=== PATIENT | male | born 1960 | race Caucasian/White ===

== ENCOUNTER 2018-11-17 17:00 | Emergency (ER) | payer BC, SELFPAY ==
[2018-11-17 17:15] VITALS: BP 144/79; PULSE 60; RESP 20; TEMP 36.9; O2SAT 100; BMI 25.8
--- NOTE | 2018-11-17 17:46 | HMH.EDUTC ---
[facility] [place] Disposition Clinical Impression: Abscess Disposition: Home, Self-Care Condition on Discharge: Good Additional Instructions: keep dressing c/d/i monitor for signs of worsening follow up monday with pcp for culture results if any concerns return or be seen in ed take antibiotics as ordered contact precautions Prescriptions: Sulfamethoxazole/Trimethoprim [Bactrim DS tablet] 1 each PO BID 10 Days #20 tab cephALEXin [Keflex 500mg Cap] 500 mg PO BID 10 Days #20 cap Referrals: Moe Biswas MD [Primary Care Provider] - Time of Disposition: 17:52 Medical Decision Making - Deejay Inquiry Pt receiving controlled substance: No Vital Signs: 11/17/18 17:15 Temperature 98.5 F Temperature Source Oral Pulse Rate [Left Radial] 60 Respiratory Rate 20 Blood Pressure [Left Arm] 144/79 H Blood Pressure Mean [Left Arm] 100 Blood Pressure Source [Left Arm] Automatic Cuff Blood Pressure Position [Left Arm] Sitting 02 Sat by Pulse Oximetry 100 Oxygen Delivery Method Room Air [facility] [place] HPI - General Chief complaint: Urgent Treatment Center Stated complaint: spot on upper r Arm Time Seen by Provider: 11/17/18 17:47 Mode of Arrival: Ambulatory Source of Information: Patient Limitations: No Limitations Description of Symptoms (Recalled from Triage Doc. by RN): PT C/O ABCESS ON RT UPPER ARM HEENT Symptoms (Recalled from RN notes): No Resp Symptoms (Recalled from RN notes): No Skin Symptoms (Recalled from RN notes): Yes (ABCESS TO RT ARM) MS Symptoms (Recalled from RN notes): No Functional Status (Recalled from RN notes): N/A - History of Present Illness Provider Complaint: 58 yr old male presents for abcess on rt upper arm. Pt states it started as a pimple and he popped it and then it came back bigger. no hx of mrsa - Related Data Home Medications Medication Instructions Recorded Confirmed Baclofen 20 mg pe PO TID 07/30/18 07/31/18 diazePAM [diazePAM 5mg Tablet] 5 mg PO BID 07/30/18 07/31/18 Previous Rx's Medication Instructions Recorded Etodolac [Etodolac 200mg Cap] 200 mg PO Q6HP PRN #20 cap 07/30/18 Ciprofloxacin HCl [Ciprofloxacin 500 mg PO BID #20 tab 07/31/18 500mg Tab] Gabapentin [Gabapentin 100mg Cap] 100 mg PO TID #30 cap 07/31/18 Oxycodone HCl/Acetaminophen 1 tab PO Q6HP PRN #10 tab 07/31/18 [Percocet 5/325mg tablet] predniSONE [Prednisone 10mg Tab 10 mg PO DAILY #42 pack 07/31/18 Dose-Pack] Sulfamethoxazole/Trimethoprim 1 each PO BID 10 Days #20 tab 11/17/18 [Bactrim DS tablet] cephALEXin [Keflex 500mg Cap] 500 mg PO BID 10 Days #20 cap 11/17/18 Allergies Allergy/AdvReac Type Severity Reaction Status Date / Time CHOLESTEROL MEDS Allergy Unknown Uncoded 04/23/18 16:10 From BIAXIN Allergy Unknown Uncoded 04/23/18 16:10 - Worker's Comp Is this a Worker's Comp case?: No [facility] History - Hepatitis A Screen Drug use history?: No High risk sexual behaviors?: No History of sexually transmitted infection?: No Currently employed?: No Childcare worker?: No Do you have indoor plumbing?: Yes Do you have electricity?: Yes Attestation statement:: This patient has been screened for Hepatitis A risk factors. I have reviewed the patient's past medical history: Yes Medical History: Denies:: Diabetes Mellitus Type 1, Diabetes Mellitus Type 2 Laterality Cases: Bilateral: Tonsillectomy - Social History Smoking Status: Current every day smoker Tobacco Type: cigarettes # Packs/Day (cigarettes): 1 Alcohol Intake: never Substance Use Type: denies use Occupational Status: unemployed - Psychiatric History Expresses thoughts of harming self/others: None Suicide Plan Description: No Plan Family Hx:: Non-contributory ROS Obtained: Yes Systems reviewed as appropriate & no additional complaints - Constitutional Constitutional: Reports system reviewed and no additional complaints, except as docu, Denies fever(s) - Eyes Eyes: Reports system reviewed and no additional complaints, e
--- NOTE | 2018-11-17 17:49 | ED_ITS ---
[facility] [place] Clinical Impression: Abscess Disposition: Home, Self-Care Condition on Discharge: Good Additional Instructions: keep dressing c/d/i monitor for signs of worsening follow up monday with pcp for culture results if any concerns return or be seen in ed take antibiotics as ordered contact precautions Prescriptions: Sulfamethoxazole/Trimethoprim [Bactrim DS tablet] 1 each PO BID 10 Days #20 tab cephALEXin [Keflex 500mg Cap] 500 mg PO BID 10 Days #20 cap Referrals: Moe Biswas MD [Primary Care Provider] - Time of Disposition: 17:52 Medical Decision Making - Deejay Inquiry Pt receiving controlled substance: No Vital Signs: 11/17/18 17:15 Temperature 98.5 F Temperature Source Oral Pulse Rate [Left Radial] 60 Respiratory Rate 20 Blood Pressure [Left Arm] 144/79 H Blood Pressure Mean [Left Arm] 100 Blood Pressure Source [Left Arm] Automatic Cuff Blood Pressure Position [Left Arm] Sitting 02 Sat by Pulse Oximetry 100 Oxygen Delivery Method Room Air [facility] [place] HPI - General Chief complaint: Urgent Treatment Center Stated complaint: spot on upper r Arm Time Seen by Provider: 11/17/18 17:47 Mode of Arrival: Ambulatory Source of Information: Patient Limitations: No Limitations Description of Symptoms (Recalled from Triage Doc. by RN): PT C/O ABCESS ON RT UPPER ARM HEENT Symptoms (Recalled from RN notes): No Resp Symptoms (Recalled from RN notes): No Skin Symptoms (Recalled from RN notes): Yes (ABCESS TO RT ARM) MS Symptoms (Recalled from RN notes): No Functional Status (Recalled from RN notes): N/A - History of Present Illness Provider Complaint: 58 yr old male presents for abcess on rt upper arm. Pt states it started as a pimple and he popped it and then it came back bigger. no hx of mrsa - Related Data Home Medications Medication Instructions Recorded Confirmed Baclofen 20 mg pe PO TID 07/30/18 07/31/18 diazePAM [diazePAM 5mg Tablet] 5 mg PO BID 07/30/18 07/31/18 Previous Rx's Medication Instructions Recorded Etodolac [Etodolac 200mg Cap] 200 mg PO Q6HP PRN #20 cap 07/30/18 Ciprofloxacin HCl [Ciprofloxacin 500 mg PO BID #20 tab 07/31/18 500mg Tab] Gabapentin [Gabapentin 100mg Cap] 100 mg PO TID #30 cap 07/31/18 Oxycodone HCl/Acetaminophen 1 tab PO Q6HP PRN #10 tab 07/31/18 [Percocet 5/325mg tablet] predniSONE [Prednisone 10mg Tab 10 mg PO DAILY #42 pack 07/31/18 Dose-Pack] Sulfamethoxazole/Trimethoprim 1 each PO BID 10 Days #20 tab 11/17/18 [Bactrim DS tablet] cephALEXin [Keflex 500mg Cap] 500 mg PO BID 10 Days #20 cap 11/17/18 Allergies Allergy/AdvReac Type Severity Reaction Status Date / Time CHOLESTEROL MEDS Allergy Unknown Uncoded 04/23/18 16:10 From BIAXIN Allergy Unknown Uncoded 04/23/18 16:10 - Worker's Comp Is this a Worker's Comp case?: No [facility] History - Hepatitis A Screen Drug use history?: No High risk sexual behaviors?: No History of sexually transmitted infection?: No Currently employed?: No Childcare worker?: No Do you have indoor plumbing?: Yes Do you have electricity?: Yes Attestation statement:: This patient has been screened
[2018-11-17 17:57] VITALS: BP 144/79; PULSE 60; RESP 20; TEMP 36.9; O2SAT 100
== END 2018-11-17 17:58 | disposition home or self-care (01) ==
PROVIDERS: Emergency Provider Nurse Practitioner Family; PCP Family Medicine
DX: L02.413 Cutaneous abscess of right upper limb (principal); F17.210 Nicotine dependence, cigarettes, uncomplicated
CPT/HCPCS: 10060; 87070; 87077; 87186; 87205; 99201

== ENCOUNTER 2018-11-18 18:12 | Outpatient (CLI) | payer BC, SELFPAY | END 2018-11-18 18:24 | disposition home or self-care (01) | PROVIDERS: PCP Family Medicine; Visit Provider Nurse Practitioner Family | DX: L02.413 Cutaneous abscess of right upper limb (principal) ==

== ENCOUNTER 2020-06-21 18:18 | Emergency (ER) | payer BC, SELFPAY ==
[2020-06-21 18:25] VITALS: BP 153/89; PULSE 69; RESP 19; TEMP 36.6; O2SAT 99; BMI 25.1
--- NOTE | 2020-06-21 19:10 | HMH.EDUTC ---
[facility] [place] Disposition Clinical Impression: Exposure to COVID-19 virus Disposition: Home, Self-Care Condition on Discharge: Good Instructions: DI for COVID-19 (Suspected or Confirmed ), Coronavirus Disease 2019, Preventing the Spread of Coronavirus Discharge Instructions Additional Instructions: *Monitor Temp, Over the counter Motrin or Tylenol as directed/as needed Tylenol every 4 hours and Motrin every 6 hours (as long as your family doctor has told you that you can take it) for fever or pain. and straight to ER if unable to lower temp less than 101.0 after medication given Follow up IMMEDIATELY for new or worsening symptoms or no Noticeable improvement over the next 48-72 hours. 911 for difficulty breathing or swallowing You were tested for today for COVID19 your test result should be back in the next 24-48 hours, you may call to the [facility] to see if your test results are back in the next 48 hours [phone] [facility] hours are 9am-9pm You was given a handout with instructions for Self Quarantine and Self isolation for while you wait on test results and what to do if they are positive If you are positive the Health Dept will be contacting you also Referrals: Moe Biswas MD [Primary Care Provider] - As needed Forms: Work/School Release Time of Disposition: 19:15 Medical Decision Making - Deejay Inquiry Pt receiving controlled substance: No Deejay was queried for this patient: No Vital Signs: 06/21/20 18:25 Temperature 97.8 F Temperature Source Oral Pulse Rate [Right Brachial] 69 Respiratory Rate 19 Blood Pressure [Right Arm] 153/89 H Blood Pressure Mean [Right Arm] 110 Blood Pressure Source [Right Arm] Automatic Cuff Blood Pressure Position [Right Arm] Sitting 02 Sat by Pulse Oximetry 99 Oxygen Delivery Method Room Air Orders (Tests/Meds): ORDERS Category Date Time Status Covid-19 Nasal PCR ([facility]) Routine Lab 06/21/20 18:35 Received [facility] [place] HPI - General Stated complaint: covid test Time Seen by Provider: 06/21/20 19:10 Mode of Arrival: Ambulatory Source of Information: Patient Limitations: No Limitations Description of Symptoms (Recalled from Triage Doc. by RN): COVID TEST D/T EXPOSURE. DENIES SYMPTOMS HEENT Symptoms (Recalled from RN notes): No Resp Symptoms (Recalled from RN notes): No Skin Symptoms (Recalled from RN notes): No MS Symptoms (Recalled from RN notes): No Functional Status (Recalled from RN notes): WNL - History of Present Illness Provider Complaint: Patient states that he was recently around someone that tested positive for COVID States that he is not having any symptoms but wanted to get tested before returning to work - Related Data Home Medications Medication Instructions Recorded Confirmed Baclofen 20 mg pe PO TID 07/30/18 07/31/18 diazePAM [diazePAM 5mg Tablet] 5 mg PO BID 07/30/18 07/31/18 Previous Rx's Medication Instructions Recorded Etodolac [Etodolac 200mg Cap] 200 mg PO Q6HP PRN #20 cap 07/30/18 Ciprofloxacin HCl [Ciprofloxacin 500 mg PO BID #20 tab 07/31/18 500mg Tab] Gabapentin [Gabapentin 100mg Cap] 100 mg PO TID #30 cap 07/31/18 Oxycodone HCl/Acetaminophen 1 tab PO Q6HP PRN #10 tab 07/31/18 [Percocet 5/325mg tablet] predniSONE [Prednisone 10mg Tab 10 mg PO DAILY #42 pack 07/31/18 Dose-Pack] Sulfamethoxazole/Trimethoprim 1 each PO BID 10 Days #20 tab 11/17/18 [Bactrim DS tablet] cephALEXin [Keflex 500mg Cap] 500 mg PO BID 10 Days #20 cap 11/17/18 Allergies Allergy/AdvReac Type Severity Reaction Status Date / Time CHOLESTEROL MEDS Allergy Unknown Uncoded 04/23/18 16:10 From BIAXIN Allergy Unknown Uncoded 04/23/18 16:10 - Worker's Comp Is this a Worker's Comp case?: No [facility] History - Hepatitis A Screen Drug use history?: No High risk sexual behaviors?: No History of sexually transmitted infection?: No Currently employed?: No Childcare worker?: No Do you have indoor plumbing?: Yes Do you have electricity?: Yes Attestat
[2020-06-21 19:17] VITALS: BP 153/89; PULSE 69; RESP 19; TEMP 36.6; O2SAT 99
== END 2020-06-21 19:19 | disposition home or self-care (01) ==
PROVIDERS: Emergency Provider Nurse Practitioner; PCP Family Medicine
DX: Z20.822 Contact with and (suspected) exposure to COVID-19 (principal); F17.210 Nicotine dependence, cigarettes, uncomplicated
CPT/HCPCS: 99202; G0463; U0003

== ENCOUNTER 2020-07-22 13:39 | Emergency (ER) | payer BC, SELFPAY ==
[2020-07-22 13:50] VITALS: BP 179/102; PULSE 92; RESP 14; TEMP 36.6; O2SAT 98; BMI 25.8
--- NOTE | 2020-07-22 13:58 | HMH.EDUTC ---
[facility] [place] Clinical Impression: Exposure to COVID-19 virus Disposition: Home, Self-Care Condition on Discharge: Good Instructions: DI for COVID-19 (Suspected or Confirmed ), Coronavirus Disease 2019, Preventing the Spread of Coronavirus Discharge Instructions Additional Instructions: *Monitor Temp, Over the counter Motrin or Tylenol as directed/as needed Tylenol every 4 hours and Motrin every 6 hours (as long as your family doctor has told you that you can take it) for fever or pain. and straight to ER if unable to lower temp less than 101.0 after medication given Make sure to follow up with your Family Doctor for evaluation of your blood pressure it was elevated in the [facility] today Follow up IMMEDIATELY for new or worsening symptoms or no Noticeable improvement over the next 48-72 hours. 911 for difficulty breathing or swallowing You were tested for today for COVID19 your test result should be back in the next 24-48 hours, you may call to the [facility] to see if your test results are back in the next 48 hours [phone] [facility] hours are 9am-9pm You was given a handout with instructions for Self Quarantine and Self isolation for while you wait on test results and what to do if they are positive If you are positive the Health Dept will be contacting you also Referrals: Moe Biswas MD [Primary Care Provider] - As needed Time of Disposition: 14:05 Medical Decision Making - Deejay Inquiry Pt receiving controlled substance: No Deejay was queried for this patient: No Vital Signs: 07/22/20 13:50 Temperature 98 F Temperature Source Tympanic Pulse Rate [Right] 92 H Respiratory Rate 14 Blood Pressure [Right Arm] 179/102 H Blood Pressure Mean [Right Arm] 127 Blood Pressure Source [Right Arm] Automatic Cuff Blood Pressure Position [Right Arm] Sitting 02 Sat by Pulse Oximetry 98 Oxygen Delivery Method Room Air Orders (Tests/Meds): ORDERS Category Date Time Status Covid-19 Nasal PCR ([facility]) Routine Lab 07/22/20 13:50 Received [facility] [place] HPI - General Stated complaint: covid test Time Seen by Provider: 07/22/20 13:59 Mode of Arrival: Ambulatory Source of Information: Patient Limitations: No Limitations Description of Symptoms (Recalled from Triage Doc. by RN): PT WAS DIRECTLY EXPOSED TO COVID ON MONDAY. AYSMPTOMATIC. HEENT Symptoms (Recalled from RN notes): No Resp Symptoms (Recalled from RN notes): No Skin Symptoms (Recalled from RN notes): No MS Symptoms (Recalled from RN notes): No Functional Status (Recalled from RN notes): NA - History of Present Illness Provider Complaint: Patient states he was recently around someone that tested positive for COVID states that his work wanted him to get tested before he can return to work due to the exposure - Related Data Home Medications Medication Instructions Recorded Confirmed Baclofen 20 mg pe PO TID 07/30/18 07/31/18 diazePAM [diazePAM 5mg Tablet] 5 mg PO BID 07/30/18 07/31/18 Previous Rx's Medication Instructions Recorded Etodolac [Etodolac 200mg Cap] 200 mg PO Q6HP PRN #20 cap 07/30/18 Ciprofloxacin HCl [Ciprofloxacin 500 mg PO BID #20 tab 07/31/18 500mg Tab] Gabapentin [Gabapentin 100mg Cap] 100 mg PO TID #30 cap 07/31/18 Oxycodone HCl/Acetaminophen 1 tab PO Q6HP PRN #10 tab 07/31/18 [Percocet 5/325mg tablet] predniSONE [Prednisone 10mg Tab 10 mg PO DAILY #42 pack 07/31/18 Dose-Pack] Sulfamethoxazole/Trimethoprim 1 each PO BID 10 Days #20 tab 11/17/18 [Bactrim DS tablet] cephALEXin [Keflex 500mg Cap] 500 mg PO BID 10 Days #20 cap 11/17/18 Allergies Allergy/AdvReac Type Severity Reaction Status Date / Time CHOLESTEROL MEDS Allergy Unknown Uncoded 04/23/18 16:10 From BIAXIN Allergy Unknown Uncoded 04/23/18 16:10 - Worker's Comp Is this a Worker's Comp case?: No [facility] History - Hepatitis A Screen Drug use history?: No High risk sexual behaviors?: No History of sexually transmitted infection?: No Currently employed?: No
[2020-07-22 14:06] VITALS: BP 164/94
[2020-07-22 14:10] VITALS: BP 180/90; PULSE 85; RESP 16; TEMP 36.6
== END 2020-07-22 14:10 | disposition home or self-care (01) ==
PROVIDERS: Emergency Provider Nurse Practitioner; PCP Family Medicine
DX: Z20.822 Contact with and (suspected) exposure to COVID-19 (principal); F17.210 Nicotine dependence, cigarettes, uncomplicated
CPT/HCPCS: 99202; G0463; U0003

== ENCOUNTER 2020-10-21 12:43 | Emergency (ER) | payer BC, SELFPAY ==
[2020-10-21 12:53] VITALS: BP 157/90; PULSE 76; RESP 20; TEMP 36.9; O2SAT 92; BMI 26.1
--- NOTE | 2020-10-21 13:16 | HMH.EDUTC ---
[facility] [place] Disposition Clinical Impression: Exposure to COVID-19 virus Disposition: Home, Self-Care Condition on Discharge: Good Instructions: Preventing the Spread of Coronavirus Discharge Instructions Additional Instructions: Drink plenty of fluids. Take tylenol for pain or fever. Return if you begin to have difficulty breathing. Follow up with your regular doctor. GO TO THE ER FOR ANY WORSENING SYMPTOMS Referrals: Moe Biswas MD [Primary Care Provider] - Time of Disposition: 13:18 Medical Decision Making - Medical Records Medical records reviewed: No: I reviewed the patient's medical records. - Deejay Inquiry Pt receiving controlled substance: No Vital Signs: 10/21/20 12:53 10/21/20 13:19 Temperature 98.5 F 98 F Temperature Source Oral Pulse Rate 78 Pulse Rate [Right Radial] 76 Respiratory Rate 20 16 Blood Pressure 147/91 H Blood Pressure [Right Arm] 157/90 H Blood Pressure Mean [Right Arm] 112 02 Sat by Pulse Oximetry 92 L Oxygen Delivery Method Room Air [facility] [place] HPI - General Stated complaint: Covid test Time Seen by Provider: 10/21/20 13:16 Mode of Arrival: Ambulatory Source of Information: Patient Limitations: No Limitations Description of Symptoms (Recalled from Triage Doc. by RN): covid exposure, needs tested HEENT Symptoms (Recalled from RN notes): No Resp Symptoms (Recalled from RN notes): No Skin Symptoms (Recalled from RN notes): No MS Symptoms (Recalled from RN notes): No Functional Status (Recalled from RN notes): na - History of Present Illness Provider Complaint: He states that he was exposd to covid-19 4 days ago. He denies any symptoms so far. - Related Data Home Medications Medication Instructions Recorded Confirmed Baclofen 20 mg pe PO TID 07/30/18 07/31/18 diazePAM [diazePAM 5mg Tablet] 5 mg PO BID 07/30/18 07/31/18 Previous Rx's Medication Instructions Recorded Etodolac [Etodolac 200mg Cap] 200 mg PO Q6HP PRN #20 cap 07/30/18 Ciprofloxacin HCl [Ciprofloxacin 500 mg PO BID #20 tab 07/31/18 500mg Tab] Gabapentin [Gabapentin 100mg Cap] 100 mg PO TID #30 cap 07/31/18 Oxycodone HCl/Acetaminophen 1 tab PO Q6HP PRN #10 tab 07/31/18 [Percocet 5/325mg tablet] predniSONE [Prednisone 10mg Tab 10 mg PO DAILY #42 pack 07/31/18 Dose-Pack] Sulfamethoxazole/Trimethoprim 1 each PO BID 10 Days #20 tab 11/17/18 [Bactrim DS tablet] cephALEXin [Keflex 500mg Cap] 500 mg PO BID 10 Days #20 cap 11/17/18 Allergies Allergy/AdvReac Type Severity Reaction Status Date / Time CHOLESTEROL MEDS Allergy Unknown Uncoded 04/23/18 16:10 From BIAXIN Allergy Unknown Uncoded 04/23/18 16:10 - Worker's Comp Is this a Worker's Comp case?: No [facility] History - Hepatitis A Screen Drug use history?: No High risk sexual behaviors?: No History of sexually transmitted infection?: No Currently employed?: No Childcare worker?: No Do you have indoor plumbing?: Yes Do you have electricity?: Yes Attestation statement:: This patient has been screened for Hepatitis A risk factors. I have reviewed the patient's past medical history: Yes Medical History: Denies:: Diabetes Mellitus Type 1, Diabetes Mellitus Type 2 Laterality Cases: Bilateral: Tonsillectomy - Social History Smoking Status: Current every day smoker Tobacco Type: cigarettes # Packs/Day (cigarettes): 1 Alcohol Intake: current Alcohol Intake Frequency:: 0-2 drinks per day Substance Use Type: denies use Occupational Status: employed Family Hx:: Non-contributory ROS Obtained: Yes All systems reviewed & no additional complaints - Constitutional Constitutional: Reports system reviewed and no additional complaints, except as docu - Eyes Eyes: Reports system reviewed and no additional complaints, except as docu - ENT Ears, Nose, Mouth, and Throat: Reports system reviewed and no additional complaints, except as docu - Cardiovascular Cardiovascular: Reports system reviewed and no additiona
[2020-10-21 13:19] VITALS: BP 147/91; PULSE 78; RESP 16; TEMP 36.6
--- NOTE | 2020-10-22 20:55 | PC.NURSE ---
Pt notified of his negative Covid result. 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
== END 2020-10-21 13:21 | disposition home or self-care (01) ==
PROVIDERS: Emergency Provider Nurse Practitioner Family; PCP Family Medicine
DX: Z20.822 Contact with and (suspected) exposure to COVID-19 (principal); F17.210 Nicotine dependence, cigarettes, uncomplicated
CPT/HCPCS: 99202; G0463; U0003

== ENCOUNTER → 2020-11-06 16:08 | Outpatient (CLI) | payer BC, SELFPAY ==
--- NOTE | 2020-11-06 | XR_ITS ---
PROCEDURE INFORMATION: Exam: XR Right Ribs with PA Chest Exam date and time: 11/06/2020 12:00 AM Age: 60 years old Clinical indication: Chest wall pain; Right; Additional info: Rib pain on anterior right side directly under RT clavicle TECHNIQUE: Imaging protocol: XR Right ribs with PA chest. Views: 3 views COMPARISON: CR XR CHEST 2V 06/05/2019 4:06 PM FINDINGS: Lungs: Unremarkable. No consolidation. Pleural spaces: Unremarkable. No pleural effusion. No pneumothorax. Heart/Mediastinum: Unremarkable. No cardiomegaly. Bones/joints: Scoliosis of the lumbar spine Contour abnormality in the anterior right 2nd rib may represent nondisplaced fracture IMPRESSION: Contour abnormality in the anterior right 2nd rib may represent nondisplaced fracture
--- NOTE | 2020-11-06 | XR_ITS ---
PROCEDURE INFORMATION: Exam: XR Left Knee Exam date and time: 11/06/2020 12:00 AM Age: 60 years old Clinical indication: Pain; Knee; Left; Additional info: Left medial knee pain TECHNIQUE: Imaging protocol: XR Left knee. Views: 3 views. COMPARISON: No relevant prior studies available. FINDINGS: Bones/joints: Mild the the all joint space narrowing in the medial compartment and patellofemoral compartment consistent with mild degenerative changes. There is no evidence of acute fracture.There is no evidence of malalignment or dislocation. Soft tissues: Normal. IMPRESSION: 1. Mild the the all joint space narrowing in the medial compartment and patellofemoral compartment consistent with mild degenerative changes. 2. There is no evidence of acute fracture.There is no evidence of malalignment or dislocation.
== END ==
LOC: RAD 16:09
PROVIDERS: PCP Family Medicine; Visit Provider Family Medicine
DX: R07.81 Pleurodynia (principal); M25.561 Pain in right knee; M25.562 Pain in left knee
CPT/HCPCS: 71101; 73562

== ENCOUNTER → 2020-11-13 15:05 | Outpatient (CLI) | payer BC, SELFPAY ==
--- NOTE | 2020-11-13 15:08 | XR_ITS ---
PROCEDURE: XR CERVICAL SPINE 5V CLINICAL INDICATION: RIGHT CERVICAL RADICULOPATHY COMPARISON: No exams were available for comparison FINDINGS: There are moderate to severe degenerative changes of C4-5 with moderate degenerative change of C5-6. Odontoid and lateral masses of C1 are normal. No prevertebral soft tissue swelling. Moderate to severe right neural foraminal narrowing at C4-5 and C5-6 with moderate left C4-5 and mild to moderate left C5-6 neural foraminal narrowing. Consider MRI cervical spine for further assessment. 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 Consider MRI cervical spine for further assessment. No acute fracture or subluxation. Dictated by: Yobany Obregon MD 11/13/2020 16:01 Yobany Obregon MD in [place] 11/13/2020 16:01
== END ==
PROVIDERS: PCP Family Medicine; Visit Provider Family Medicine
DX: M54.12 Radiculopathy, cervical region (principal)
CPT/HCPCS: 72050

== ENCOUNTER → 2020-11-24 17:00 | Outpatient (CLI) | payer BC, SELFPAY | PROVIDERS: PCP Family Medicine; Referring Provider Family Medicine; Visit Provider Family Medicine | DX: Z20.828 Contact with and (suspected) exposure to other viral communicable diseases (principal) | CPT/HCPCS: U0003 ==

== ENCOUNTER → 2021-09-15 13:14 | Outpatient (CLI) | payer BC, SELFPAY ==
--- NOTE | 2021-09-15 13:18 | US_ITS ---
FINAL REPORT CLINICAL HISTORY: LT NODULE OF GROIN FINDINGS: ULTRASOUND SOFT TISSUES OF THE LEFT GROIN Sonographic images of the soft tissues of the left groin were obtained. There is a 3.4 cm left inguinal lymph node which has the appearance most consistent with a reactive node. There are several other probable reactive nodes in the left inguinal region. IMPRESSION: Reactive lymph nodes in the left inguinal region. Reviewed, Interpreted and Dictated by Alvaro Garcia III, MD Transcribed by Beatriz He Authenticated by Alvaro Garcia III, MD on 09/15/2021 04:54:24 PM [facility]
== END ==
LOC: RAD 13:15
PROVIDERS: PCP Family Medicine; Visit Provider Nurse Practitioner Family
DX: R19.09 Other intra-abdominal and pelvic swelling, mass and lump (principal)
CPT/HCPCS: 76882

== ENCOUNTER 2022-01-06 09:28 | Emergency (ER) | payer BC, SELFPAY ==
[2022-01-06] VITALS (11 sets, daily range): BP systolic 113–171; BP diastolic 72–106; PULSE 60–81; RESP 16–17; TEMP 36.6; O2SAT 97–99; BMI 25.9
--- NOTE | 2022-01-06 09:31 | ECG_ITS ---
APPROVED REPORT Exam: Resting ECG HR:84 bpm ECG Measurements Heart Rate 84 AXES NV 128 P 70 QRSd 76 QRS 77 QT 353 T 74 QTc 393 Conclusion SINUS RHYTHM WITH SINUS ARRHYTHMIA NORMAL ECG UNCONFIRMED REPORT Electronically signed by : Moe Nunes MD 01/07/2022 21:41:41
--- NOTE | 2022-01-06 09:37 | XR_ITS ---
FINAL REPORT CLINICAL HISTORY: chest pain COMPARISON: 11/06/2020 FINDINGS: Two views of the chest were obtained. The heart size and pulmonary vascularity are within normal limits. The mediastinum is normal. No acute pulmonary abnormality is identified. There is no pneumothorax. The bony thorax is intact. IMPRESSION: No active cardiopulmonary disease. Reviewed, Interpreted and Dictated by Alvaro Garcia III, MD Transcribed by Bruna Guo Authenticated and [facility]
--- NOTE | 2022-01-06 09:41 | PC.NURSE ---
pt to radiology for chest xr via wheelchair with RAD techs x 2
--- NOTE | 2022-01-06 09:44 | PC.NURSE ---
pt back from radiology via wheelchair with fisheries technical officer; hooked back to monitor
[2022-01-06 09:51] LABS: Basophils # 0.1 K/mm3 (0-0.2); Eosinophils # 0.2 K/mm3 (0.0-0.4); Eosinophils % 2.2 % (0.1-12.0); Hemoglobin 15.4 g/dL (14.1-18.0); Lymphocytes # 2.5 K/mm3 (0.7-4.5); Lymphocytes % 24.5 % (10-50); Mean Corpuscular HGB Conc 31.5 g/dL (31.8-35.4); Mean Corpuscular Hemoglobin 30.2 pg (27.0-31.2); Mean Corpuscular Volume 95.9 fl (80-94); Mean Platelet Volume 7.8 fl (7.4-10.4); Monocytes # 0.6 K/mm3 (0.1-1.0); Neutrophils # 6.7 K/mm3 (1.8-7.8); Neutrophils % 66.3 % (37.0-80.0); Platelet Count 207 K/mm3 (142-424); Red Blood Count 5.11 M/mm3 (4.60-6.20); Red Cell Distribution Width 14.4 % (11.5-17.5); White Blood Count 10.2 K/mm3 (4.8-10.8)
[2022-01-06 09:54] LABS: Chloride 107 mmol/L (98-107); Sodium 143 mmol/L (136-145)
[2022-01-06 09:55] LABS: Potassium 4.1 mmoL/L (3.5-5.1)
[2022-01-06 09:58] LABS: Anion Gap 13.1 mEq/L (5-15); Blood Urea Nitrogen 16 mg/dl (9-20); Calcium 10.2 mg/dl (8.4-10.2); Carbon Dioxide 27 mmol/L (22.0-30.0); Creatinine Clearance Estimated 97 mL/min (50-200); Estimated Glomerular Filt Rate 86 ml/min (>60); GFR (African American) 105 ML/MIN (>60); Glucose 136 mg/dl (74-100)
--- NOTE | 2022-01-06 10:01 | PC.NURSE ---
pt took 2 asa at home
--- NOTE | 2022-01-06 10:04 | HMH.EDGENADL ---
ED Disposition Clinical Impression: Chest pain Qualifiers: Chest pain type: unspecified Qualified Code(s): R07.9 - Chest pain, unspecified Disposition: Home, Self-Care Condition on Discharge: Good Instructions: DI for Chest Pain Additional Instructions: Losartan as prescribed. See Dr. Giordano on Monday as arranged. Additional instructions for CHEST PAIN: Return immediately if worsening chest pain, vomiting, shortness of breath, fever, coughing of blood. Prescriptions: Valsartan [Diovan] 80 mg PO DAILY #30 tab Transmission Status: Pending to [facility] Referrals: Provider,MD Katiuska [Referring] - Jim Giordano MD [Staff Physician] - - Critical Care Critical Care Time: No Attestation: On 01/06/22, the high probability of a clinically significant, sudden or life threatening deterioration of the following system(s) required my full and direct attention, intervention and personal management. The time I documented below is in addition to time spent performing reported procedures but includes the following listed in this critical care notation. Medical Decision Making - Deejay Inquiry Pt receiving controlled substance: No Vital Signs: 01/06/22 09:33 01/06/22 10:00 01/06/22 10:25 Temperature 98 F Temperature Source Oral Pulse Rate 75 67 Pulse Rate [Radial] 81 Respiratory Rate 16 Blood Pressure 158/95 H 171/85 H Blood Pressure [Right Arm] 164/95 H Blood Pressure Mean 119 113 Blood Pressure Mean [Right Arm] 118 Blood Pressure Position Sitting Blood Pressure Position [Right Arm] Sitting 02 Sat by Pulse Oximetry 98 98 99 Oxygen Delivery Method Nasal Cannula 01/06/22 10:30 01/06/22 10:35 01/06/22 10:56 Temperature Temperature Source Pulse Rate 72 73 72 Pulse Rate [Radial] Respiratory Rate Blood Pressure 136/94 H 144/91 H 161/106 H Blood Pressure [Right Arm] Blood Pressure Mean 108 124 Blood Pressure Mean [Right Arm] Blood Pressure Position Blood Pressure Position [Right Arm] 02 Sat by Pulse Oximetry 97 98 Oxygen Delivery Method 01/06/22 11:00 01/06/22 11:34 01/06/22 11:35 Temperature Temperature Source Pulse Rate 70 68 71 Pulse Rate [Radial] Respiratory Rate Blood Pressure 142/101 H 115/72 113/74 Blood Pressure [Right Arm] Blood Pressure Mean 114 88 87 Blood Pressure Mean [Right Arm] Blood Pressure Position Blood Pressure Position [Right Arm] 02 Sat by Pulse Oximetry 98 98 99 Oxygen Delivery Method 01/06/22 12:00 Temperature Temperature Source Pulse Rate 64 Pulse Rate [Radial] Respiratory Rate Blood Pressure 118/72 Blood Pressure [Right Arm] Blood Pressure Mean 84 Blood Pressure Mean [Right Arm] Blood Pressure Position Blood Pressure Position [Right Arm] 02 Sat by Pulse Oximetry 98 Oxygen Delivery Method - Lab Data Lab Results 01/06/22 09:38: WBC 10.2, RBC 5.11, Hgb 15.4, Hct 49.0, MCV 95.9 H, MCH 30.2, MCHC 31.5 L, RDW 14.4, Plt Count 207, MPV 7.8, Neut % (Auto) 66.3, Lymph % (Auto) 24.5, [place] % (Auto) 6.0, Eos % (Auto) 2.2, Baso % (Auto) 1.0, Neut # (Auto) 6.7, Lymph # (Auto) 2.5, [place] # (Auto) 0.6, Eos # (Auto) 0.2, Baso # (Auto) 0.1 01/06/22 09:38: Sodium 143, Potassium 4.1, Chloride 107, Carbon Dioxide 27, Anion Gap 13.1, BUN 16, Creatinine 0.90, Estimated Creat Clear 97, Estimated GFR 86, Est GFR ( Amer) 105, Glucose 136 H, Calcium 10.2, Troponin I < 0.01 01/06/22 12:05: Troponin I < 0.01 Result diagrams: 01/06/22 09:38 01/06/22 09:38 Orders (Tests/Meds): ED MEDICATIONS Generic Name Dose Route Start Last Admin Trade Name Freq PRN Reason Stop Dose Admin Nitroglycerin 0.4 mg 01/06/22 10:17 01/06/22 10:35 Nitroglycerin 0.4mg Sl Tablet SL 02/05/22 10:16 0.4 mg Q5MINP PRN Administration Chest Pain Sodium Chloride 10 ml 01/06/22 09:43 Sodium Chloride 0.9% 10ml Flush Syringe IV 02/05/22 09:42 NEEDED PRN Maintain
--- NOTE | 2022-01-06 10:12 | PC.NURSE ---
MINGO HANCOCK at for patient eval
[2022-01-06 10:18] LABS: Troponin I < 0.01 ng/ml (0.00-0.034)
--- NOTE | 2022-01-06 10:19 | PC.NURSE ---
pt ambulated up to br
--- NOTE | 2022-01-06 10:22 | PC.NURSE ---
called office for cardiology consult
--- NOTE | 2022-01-06 10:38 | PC.NURSE ---
Cardiology at speaking with patient
--- NOTE | 2022-01-06 10:54 | HMH.CNCARD ---
History of Present Illness Consult date: 01/06/22 Requesting physician: Roger Dumont Consult reason: chest pain Chief complaint: chest pain Additional Medical History:: Significant past medical hx 1 ppd smoker hx of afib and vtach s/p 2 ablations in 2013 normal cors 2012 History of present illness: 61 year old male with above past medical hx presented to er with complaint of left sided, sharp, chest pain, radiating down left arm to elbow and into left shoulder blade that started at 0800. 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 Patient states he went to the nurse an bp was elevated- systolic was in the 150s. Symptoms did improve but had another episode of sharp chest pain in ED. Of note bp up to 171/85 in ED. Currently rating pain 4/10. Denies associated soa. denies hx of swelling/pain in legs. Patient reports a few episodes of chest pain previously over the years but usually brief in nature. First trop is negative, ekg is negative for ischemic changes, chest x-ray negative for acute changes. [facility] History Medical History: Denies:: Diabetes Mellitus Type 1, Diabetes Mellitus Type 2 *Have you ever received a pneumonia vaccine?: No *Have you received a flu vaccine this season?: No Laterality Cases: Bilateral: Tonsillectomy - *Social History Smoking Status: Current every day smoker Tobacco Type: cigarettes # Packs/Day (cigarettes): 1 Alcohol Intake: current Alcohol Intake Frequency:: 0-2 drinks per day Substance Use Type: denies use *Occupational Status:: employed *Travel in the last 8 weeks: Inside the [facility] Family Hx:: Non-contributory Meds Home Medications Medication Instructions Recorded Confirmed Type Baclofen 20 mg pe PO TID 07/30/18 07/31/18 History Etodolac [Etodolac 200mg Cap] 200 mg PO Q6HP PRN #20 cap 07/30/18 07/31/18 Rx diazePAM [diazePAM 5mg Tablet] 5 mg PO BID 07/30/18 07/31/18 History Ciprofloxacin HCl [Ciprofloxacin 500 mg PO BID #20 tab 07/31/18 Rx 500mg Tab] Gabapentin [Gabapentin 100mg Cap] 100 mg PO TID #30 cap 07/31/18 Rx Oxycodone HCl/Acetaminophen 1 tab PO Q6HP PRN #10 tab 07/31/18 Rx [Percocet 5/325mg tablet] predniSONE [Prednisone 10mg Tab 10 mg PO DAILY #42 pack 07/31/18 Rx Dose-Pack] Sulfamethoxazole/Trimethoprim 1 each PO BID 10 Days #20 tab 11/17/18 Rx [Bactrim DS tablet] cephALEXin [Keflex 500mg Cap] 500 mg PO BID 10 Days #20 cap 11/17/18 Rx Valsartan [Diovan] 80 mg PO DAILY #30 tab 01/06/22 Rx Allergies Allergy/AdvReac Type Severity Reaction Status Date / Time CHOLESTEROL MEDS Allergy Unknown Uncoded 04/23/18 16:10 From BIAXIN Allergy Unknown Uncoded 04/23/18 16:10 Exam Vital signs and Labs for Last 24 Hours: Temp Pulse Resp BP Pulse Ox 98 F 73 16 144/91 H 98 01/06/22 09:33 01/06/22 10:35 01/06/22 09:33 01/06/22 10:35 01/06/22 09:33 Laboratory Results - last 24 hr 01/06/22 09:38: WBC 10.2, RBC 5.11, Hgb 15.4, Hct 49.0, MCV 95.9 H, MCH 30.2, MCHC 31.5 L, RDW 14.4, Plt Count 207, MPV 7.8, Neut % (Auto) 66.3, Lymph % (Auto) 24.5, [place] % (Auto) 6.0, Eos % (Auto) 2.2, Baso % (Auto) 1.0, Neut # (Auto) 6.7, Lymph # (Auto) 2.5, [place] # (Auto) 0.6, Eos # (Auto) 0.2, Baso # (Auto) 0.1 01/06/22 09:38: Sodium 143, Potassium 4.1, Chloride 107, Carbon Dioxide 27, Anion Gap 13.1, BUN 16, Creatinine 0.90, Estimated Creat Clear 97, Estimated GFR 86, Est GFR ( Amer) 105, Glucose 136 H, Calcium 10.2, Troponin I < 0.01 I & O for Last 24 hours: Intake & Output 01/03/22 01/04/22 01/05/22 01/06/22 23:59 23:59 23:59 23:59 Weight 171 lb - Constitutional no acute distress - *Routine Respiratory Exam Present: CTA bilaterally - *Routine Extremities Exam Absent: cyanosis, clubbing, edema Review of Systems - *Cardiovascular Reports chest pain, Denies shortness of breath Assessment and Plan (1) HTN (hypertension) Status: Acute Categ
--- NOTE | 2022-01-06 11:55 | PC.NURSE ---
holding bp medication per MD request. pt bp at baseline currently
--- NOTE | 2022-01-06 12:22 | PC.NURSE ---
2ND TROP SENT TO LAB
[2022-01-06 12:44] LABS: Troponin I < 0.01 ng/ml (0.00-0.034)
--- NOTE | 2022-01-06 12:55 | PC.NURSE ---
cardiology to the ed and gave verbal d/c orders to ed physician
== END 2022-01-06 13:18 | disposition home or self-care (01) ==
PROVIDERS: Emergency Provider Emergency Medicine; PCP Family Medicine
DX: R07.9 Chest pain, unspecified (principal); Z79.899 Other long term (current) drug therapy; Z88.8 Allergy status to other drugs, medicaments and biological substances; Z72.0 Tobacco use
CPT/HCPCS: 71046; 80048; 84484; 85025; 93005; 99284

== ENCOUNTER 2022-10-25 17:00 | Outpatient (RCR) | payer BC, SELFPAY | END 2022-10-25 17:05 | disposition home or self-care (01) | LOC: PT 17:00 | PROVIDERS: PCP Family Medicine; Visit Provider Internal Medicine | DX: G89.29 Other chronic pain (principal); M54.30 Sciatica, unspecified side; M54.9 Dorsalgia, unspecified; M47.892 Other spondylosis, cervical region | CPT/HCPCS: 97012; 97110; 97163 ==

== ENCOUNTER → 2023-05-01 23:52 | Outpatient (CLI) | payer BC, SELFPAY ==
[2023-05-01 19:00] LABS: Basophils # 0.1 K/mm3 (0-0.2); Basophils % 0.6 % (0.1-2.0); Eosinophils # 0.2 K/mm3 (0.0-0.4); Eosinophils % 1.7 % (0.1-12.0); Hematocrit 47.2 % (42.0-52.0); Hemoglobin 15.9 g/dL (14.1-18.0); Lymphocytes # 2.9 K/mm3 (0.7-4.5); Lymphocytes % 21.2 % (10-50); Mean Corpuscular HGB Conc 33.6 g/dL (31.8-35.4); Mean Corpuscular Hemoglobin 31.5 pg (27.0-31.2); Mean Corpuscular Volume 93.7 fl (80-94); Mean Platelet Volume 9.1 fl (7.4-10.4); Monocytes # 0.7 K/mm3 (0.1-1.0); Monocytes % 5.2 % (1.7-9.3); Neutrophils # 9.9 K/mm3 (1.8-7.8); Neutrophils % 71.3 % (37.0-80.0); Platelet Count 230 K/mm3 (142-424); Red Blood Count 5.04 M/mm3 (4.60-6.20); Red Cell Distribution Width 14.1 % (11.5-17.5); White Blood Count 13.9 K/mm3 (4.8-10.8)
[2023-05-01 19:22] LABS: Hemoglobin A1C 5.6 % (4.0-6.0)
[2023-05-01 19:38] LABS: Alanine Aminotransferase 35 U/L (12-78); Albumin Level 4.8 g/dl (3.5-5.0); Albumin/Globulin Ratio 1.7 (1.1-1.8); Aspartate Amino Transferase 39 U/L (17-59); Blood Urea Nitrogen 17 mg/dl (9-20); Calcium 9.6 mg/dl (8.4-10.2); Carbon Dioxide 24 mmol/L (22.0-30.0); Chloride 106 mmol/L (98-107); Chol/HDL Ratio 7.3 (1-3.5); Cholesterol 313 mg/dl (140-200); Estimated Glomerular Filt Rate 86 ml/min (>60); GFR (African American) 104 ML/MIN (>60); Globulin 2.9 g/dL (1.3-3.2); Glucose 95 mg/dl (74-100); HDL Cholesterol 43 mg/dl (40-60); Total Protein,Serum 7.7 g/dl (6.3-8.2); Triglycerides 327 mg/dl (30-150); VLDL Cholesterol 65 mg/dL (0-40)
[2023-05-01 19:40] LABS: Alkaline Phosphatase 120 U/L (38-126); Anion Gap 14.7 mEq/L (5-15); Bilirubin,Total 0.4 mg/dl (0.2-1.3); Potassium 3.7 mmoL/L (3.5-5.1); Sodium 141 mmol/L (136-145)
[2023-05-01 19:50] LABS: Direct LDL Cholesterol 200.73 mg/dL (100-129)
[2023-05-01 19:54] LABS: Creatinine,Urine Random 255 mg/dL (Not Estab.)
[2023-05-01 20:01] LABS: Microalbumin/Creatinine Ratio 8.7
[2023-05-01 20:10] LABS: Prostate Specific Ag Screen 4.3 ng/ml (0.0-4.0)
== END ==
LOC: LAB.DROPOF 23:52
PROVIDERS: PCP Internal Medicine; Visit Provider Internal Medicine
DX: Z12.5 Encounter for screening for malignant neoplasm of prostate; Z79.899 Other long term (current) drug therapy; I10 Essential (primary) hypertension
CPT/HCPCS: 80053; 80061; 82043; 82570; 83036; 85025; G0103

== ENCOUNTER 2023-06-26 14:50 | Outpatient (CLI) | payer BC, SELFPAY ==
[2023-06-27 08:32] LABS: PSA, Free 0.82 ng/mL; Prostate Specific Ag 4.5 ng/mL (0.0-4.0)
== END 2023-06-26 23:59 ==
LOC: LAB 14:51
PROVIDERS: PCP Internal Medicine; Visit Provider Urology
DX: R97.20 Elevated prostate specific antigen [PSA] (principal)
CPT/HCPCS: 36415; 84153; 84154

== ENCOUNTER 2023-07-17 11:09 | Emergency (ER) | payer BC, SELFPAY ==
[2023-07-17 11:35] VITALS: BP 133/70; PULSE 97; RESP 20; TEMP 37.2; O2SAT 97; BMI 26.1
--- NOTE | 2023-07-17 11:41 | ED_ITS ---
Discharge Plan Disposition Patient Disposition: Home, Self-Care Condition: Good Prescriptions Prescriptions: New benzonatate [benzonatate] 100 mg capsule 100 mg PO TIDP PRN (Reason: Cough) Qty: 30 0RF oseltamivir [Tamiflu] 75 mg capsule 75 mg PO BID Qty: 10 0RF methylprednisolone 4 mg Tablets,Dose Pack 4 mg PO DIRECTED 6 Days Qty: 21 0RF Rx Instructions: Take 1 pack as directed for 6 days ondansetron 4 mg Tablet,Disintegrating 4 mg PO Q8H PRN (Reason: Nausea) Qty: 12 0RF No Action tizanidine 2 mg tablet 2 mg PO Q6H PRN (Reason: muscle spasticity) Qty: 120 1RF Rx Instructions: 1-2 q 6 hours PRN. tramadol 50 mg tablet 50 mg PO Q6H PRN (Reason: pain) Qty: 180 1RF Rx Instructions: 1-2 tablets q 6 hours PRN pain meloxicam 15 mg tablet 15 mg PO DAILY 30 Days Qty: 30 2RF lisinopril 5 mg tablet 5 mg PO DAILY 30 Days Qty: 30 2RF fenofibrate 50 mg capsule 50 mg PO DAILY 30 Days Qty: 30 2RF omega-3 fatty acids 1,000 mg capsule 1,000 mg PO BID 30 Days Qty: 60 2RF oxybutynin chloride 10 mg tablet extended release 24hr 10 mg PO DAILY Qty: 90 3RF tamsulosin [Flomax] 0.4 mg capsule 0.4 mg PO DAILY Qty: 30 3RF Referrals Follow up/Referrals: Paresh Delcid DO [Primary Care Provider] - See instructions Activity Restrictions/Add. Instructions Additional Instructions/Restrictions: Drink plenty of fluids. Take tylenol or ibuprofen for pain or fever. Take the medications as directed. Follow up with your regular doctor. GO TO THE ER FOR ANY WORSENING SYMPTOMS Clinical Impressions Clinical Impression: Influenza A Stand Alone Forms Stand Alone Forms: Work/School Release Instructions Patient Instructions: Influenza, DI for Influenza -- Adult, Ondansetron, Benzonatate, Methylprednisolone, Oseltamivir Discharge ED Provider: Yobany Christianson [facility] [place] HPI General Stated complaint: coungh, congestion, runny nose, body aches Time Seen by Provider: 07/17/23 11:41 History of Present Illness Provider Complaint: He states that for the past 2 days he has had fever, chills, malaise, body aches, and a dry cough. Related Data Previous Rx's Medication Instructions Recorded lisinopril 5 mg tablet 5 mg PO DAILY 30 days #30 tabs 05/01/23 meloxicam 15 mg tablet 15 mg PO DAILY 30 days #30 tabs 05/01/23 tizanidine 2 mg tablet 2 mg PO Q6H PRN muscle spasticity 05/01/23 #120 tabs tramadol 50 mg tablet 50 mg PO Q6H PRN pain #180 tabs 05/01/23 fenofibrate 50 mg capsule 50 mg PO DAILY 30 days #30 caps 05/17/23 omega-3 fatty acids 1,000 mg 1,000 mg PO BID 30 days #60 caps 05/17/23 capsule oxybutynin chloride 10 mg 10 mg PO DAILY #90 tabs 06/26/23 tablet,extended release 24 hr tamsulosin 0.4 mg capsule (Flomax) 0.4 mg PO DAILY #30 caps 06/26/23 benzonatate 100 mg capsule 100 mg PO TIDP PRN Cough #30 caps 07/17/23 methylprednisolone 4 mg tablets in 4 mg PO DIRECTED 6 days #21 tabs 07/17/23 a dose pack ondansetron 4 mg disintegrating 4 mg PO Q8H PRN Nausea #12 tabs 07/17/23 tablet oseltamivir 75 mg capsule (Tamiflu) 75 mg PO BID #10 caps 07/17/23 Allergies Allergy/AdvReac Type Severity Reaction Status Date / Time CHOLESTEROL MEDS Allergy Unknown Uncoded 07/03/23 08:46 From BIAXIN Allergy Unknown Uncoded 07/03/23 08:46 [facility] Disclaimer: The information contained in this section may have been updated after the patient was seen, as this information can be updated by other users. Surgical History History of cardiac radiofrequency ablation Social History Smoking Status: Current every day smoker tobacco type: cigarettes packs per day: 1 alcohol intake: current substance use type: denies use current occupational status: employed Travel in the last 8 weeks: Inside the [place] ROS Obtained: Yes All systems reviewed & no additional complaints except as documented Constitutional Constitutional: Reports chills and Reports fever(s) Eyes Eyes: Denies eye discharge ENT Ears, Nose, Mouth, and Throat: Reports as per HPI Cardiovascular Cardiovascular: Denies chest pain Respiratory Respiratory: Denies chest congestion and Reports cough Gastrointestinal Gastrointestingal: Reports nausea; Denies abdominal pain, constipation, cramping , diarrhea or vomiting Musculoskeletal Musculoskeletal: Denies arthralgias Integumentary/Breasts Skin/Breast: Denies rash Neurologic Neurologic: Denies paresthesias Physical Exam General General appearance: alert and in no apparent distress Head Head exam: atraumatic, normocephalic and normal inspection Eye Eye exam: Present normal appearance, PERRL and EOMI ENT ENT exam: Present normal exam, normal oropharynx, mucous membranes moist, TM's normal bilaterally and normal external ear exam Neck Neck exam: Present normal inspection, full ROM and trachea midline; Absent meningismus or lymphadenopathy Chest Chest inspection: Present normal inspection and symmetric chest wall rise; Absent tenderness Respiratory Respiratory exam: Present normal lung sounds bilaterally; Absent respiratory distress Cardiovascular Cardiovascular exam: Present regular rate and normal rhythm; Absent JVD Abdominal Exam Abdominal exam: Present soft and normal bowel sounds; Absent distention, tenderness or guarding Extremities Exam Extremities exam: Present normal inspection, full ROM and normal capillary refill; Absent calf tenderness Back Exam Back exam: Present normal inspection; Absent tenderness Neurological Exam Neurological exam: Present alert and oriented X3 Psychiatric Psychiatric exam: Present normal affect and normal mood Skin Skin exam: Present warm, dry, intact and normal color Lymphatic Lymphatic Findings: no adenopathy Medical Decision Making Medical Records Medical records reviewed: No I reviewed the patient's medical records. Deejay Inquiry Pt receiving controlled substance: No Lab Data Lab results reviewed: Yes I reviewed the patient's lab results.
[2023-07-17 11:56] LABS: UTC Influenza A Antigen Positive (Negative)
[2023-07-17 11:57] LABS: UTC Influenza B Antigen Negative (Negative)
[2023-07-17 12:20] VITALS: BP 133/70; PULSE 97; RESP 20; TEMP 37.2; O2SAT 97
== END 2023-07-17 12:28 | disposition home or self-care (01) ==
PROVIDERS: Emergency Provider Nurse Practitioner Family; PCP Internal Medicine
DX: J10.1 Influenza due to other identified influenza virus with other respiratory manifestations (principal); R50.9 Fever, unspecified; R05.9 Cough, unspecified; F17.210 Nicotine dependence, cigarettes, uncomplicated
CPT/HCPCS: 87804; 99212; 99214; G0463

== ENCOUNTER 2023-08-28 12:24 | Outpatient (CLI) | payer BC, SELFPAY ==
[2023-08-28 12:41] LABS: Alanine Aminotransferase 15 U/L (12-78); Albumin Level 4.4 g/dl (3.5-5.0); Albumin/Globulin Ratio 1.8 (1.1-1.8); Alkaline Phosphatase 99 U/L (38-126); Anion Gap 8.4 mEq/L (5-15); Aspartate Amino Transferase 28 U/L (17-59); Bilirubin,Total 0.5 mg/dl (0.2-1.3); Blood Urea Nitrogen 12 mg/dl (9-20); Calcium 10.3 mg/dl (8.4-10.2); Carbon Dioxide 29 mmol/L (22.0-30.0); Chloride 107 mmol/L (98-107); Chol/HDL Ratio 5.1 (1-3.5); Cholesterol 272 mg/dl (140-200); Estimated Glomerular Filt Rate 76 ml/min (>60); GFR (African American) 92 ML/MIN (>60); Globulin 2.5 g/dL (1.3-3.2); Glucose 115 mg/dl (74-100); HDL Cholesterol 53 mg/dl (40-60); Potassium 4.4 mmoL/L (3.5-5.1); Sodium 140 mmol/L (136-145); Total Protein,Serum 6.9 g/dl (6.3-8.2); Triglycerides 164 mg/dl (30-150); VLDL Cholesterol 33 mg/dL (0-40)
[2023-08-28 12:46] LABS: Basophils # 0.1 K/mm3 (0-0.2); Basophils % 0.9 % (0.1-2.0); Eosinophils # 0.2 K/mm3 (0.0-0.4); Eosinophils % 2.4 % (0.1-12.0); Hematocrit 45.3 % (42.0-52.0); Hemoglobin 14.7 g/dL (14.1-18.0); Lymphocytes # 1.7 K/mm3 (0.7-4.5); Lymphocytes % 21.3 % (10-50); Mean Corpuscular HGB Conc 32.4 g/dL (31.8-35.4); Mean Corpuscular Volume 95.6 fl (80-94); Mean Platelet Volume 9.3 fl (7.4-10.4); Monocytes # 0.6 K/mm3 (0.1-1.0); Monocytes % 6.7 % (1.7-9.3); Neutrophils # 5.6 K/mm3 (1.8-7.8); Neutrophils % 68.8 % (37.0-80.0); Platelet Count 232 K/mm3 (142-424); Red Blood Count 4.74 M/mm3 (4.60-6.20); Red Cell Distribution Width 13.8 % (11.5-17.5); White Blood Count 8.2 K/mm3 (4.8-10.8)
[2023-08-28 12:52] LABS: Direct LDL Cholesterol 159.02 mg/dL (100-129)
[2023-08-28 12:56] LABS: Hemoglobin A1C 5.8 % (4.0-6.0)
== END 2023-08-28 23:59 ==
LOC: LAB 12:25 → LAB.DROPOF 12:25
PROVIDERS: PCP Internal Medicine; Visit Provider Internal Medicine
DX: E03.9 Hypothyroidism, unspecified (principal); E78.2 Mixed hyperlipidemia; I10 Essential (primary) hypertension; F17.210 Nicotine dependence, cigarettes, uncomplicated
CPT/HCPCS: 80053; 80061; 83036; 85025

== ENCOUNTER 2023-10-25 18:15 | Emergency (ER) | payer BC, SELFPAY ==
[2023-10-25 19:35] VITALS: BP 131/79; PULSE 79; RESP 20; TEMP 37.1; O2SAT 97; BMI 25.8
--- NOTE | 2023-10-25 19:58 | ED_ITS ---
Discharge Plan Disposition Patient Disposition: Home, Self-Care Condition: Good Prescriptions Prescriptions: New clindamycin HCl 300 mg capsule 300 mg PO Q8H 10 Days Qty: 30 0RF mupirocin 2 % ointment 1 applic topical TID 10 Days Qty: 40 0RF Rx Instructions: apply as directed No Action meloxicam 15 mg tablet 15 mg PO DAILY 30 Days Qty: 30 2RF tamsulosin [Flomax] 0.4 mg capsule 0.4 mg PO DAILY Qty: 30 3RF oxybutynin chloride 10 mg tablet extended release 24hr 10 mg PO DAILY Qty: 90 3RF tramadol 50 mg tablet 50 mg PO Q6H PRN (Reason: pain) 30 Days Qty: 180 2RF Rx Instructions: 1-2 tablets q 6 hours PRN pain lisinopril 5 mg tablet 5 mg PO DAILY 30 Days Qty: 30 2RF omega-3 fatty acids 1,000 mg capsule 1,000 mg PO BID 30 Days Qty: 60 2RF tizanidine 2 mg tablet 2 mg PO Q6H PRN (Reason: muscle spasticity) Qty: 120 1RF Rx Instructions: 1-2 q 6 hours PRN. fenofibrate 50 mg capsule 54 mg PO DAILY Qty: 90 4RF benzonatate [benzonatate] 100 mg capsule 100 mg PO TIDP PRN (Reason: Cough) Qty: 30 0RF ondansetron 4 mg Tablet,Disintegrating 4 mg PO Q8H PRN (Reason: Nausea) Qty: 12 0RF Referrals Follow up/Referrals: Paresh Delcid DO [Primary Care Provider] - See instructions Activity Restrictions/Add. Instructions Additional Instructions/Restrictions: clean area with warm water and antibacterial Take medication as prescribed Follow up with your Family Doctor if no improvement or any worsening of symptoms Follow up to get your Wound culture results Straight to ER if any life threatening symptoms Clinical Impressions Clinical Impression: Cellulitis Instructions Patient Instructions: Cellulitis, Clindamycin, Mupirocin Discharge ED Provider: Dee Miranda [facility] [place] HPI General Stated complaint: spot on arm , oozing Mode of Arrival: Ambulatory Source of Information: Patient Limitations: No Limitations Time Seen by Provider: 10/25/23 19:58 Description of Symptoms (Recalled from Triage Doc. by RN): PATIENT C/O SORE ON LEFT FOREARM THAT SHOWED UP ON 10/15/23 HEENT Symptoms (Recalled from RN notes): No Resp Symptoms (Recalled from RN notes): No Skin Symptoms (Recalled from RN notes): Yes MS Symptoms (Recalled from RN notes): No Functional Status (Recalled from RN notes): WNL History of Present Illness Provider Complaint: Patient states that he noticed a sore like area on his left forearm State that as the day went on it started draining and looking red states he works at a [employer] and not really sure what he may have got into too so he came in Related Data Previous Rx's Medication Instructions Recorded meloxicam 15 mg tablet 15 mg PO DAILY 30 days #30 tabs 05/01/23 benzonatate 100 mg capsule 100 mg PO TIDP PRN Cough #30 caps 07/17/23 ondansetron 4 mg disintegrating 4 mg PO Q8H PRN Nausea #12 tabs 07/17/23 tablet oxybutynin chloride 10 mg 10 mg PO DAILY #90 tabs 07/31/23 tablet,extended release 24 hr tamsulosin 0.4 mg capsule (Flomax) 0.4 mg PO DAILY #30 caps 07/31/23 lisinopril 5 mg tablet 5 mg PO DAILY 30 days #30 tabs 08/11/23 tramadol 50 mg tablet 50 mg PO Q6H PRN pain 30 days #180 08/15/23 tabs omega-3 fatty acids 1,000 mg 1,000 mg PO BID 30 days #60 caps 08/24/23 capsule tizanidine 2 mg tablet 2 mg PO Q6H PRN muscle spasticity 08/25/23 #120 tabs fenofibrate 50 mg capsule 54 mg (1.08 x 50 mg) PO DAILY #90 10/03/23 caps clindamycin HCl 300 mg capsule 300 mg PO Q8H 10 days #30 caps 10/25/23 mupirocin 2 % topical ointment 1 applic topical TID 10 days #40 10/25/23 grams Allergies Allergy/AdvReac Type Severity Reaction Status Date / Time CHOLESTEROL MEDS Allergy Unknown Uncoded 08/15/23 09:17 From BIAXIN Allergy Unknown Uncoded 08/15/23 09:17 Worker's Comp Is this a Worker's Comp case?: No [facility] Disclaimer: The information contained in this section may have been updated after the patient was seen, as this information can be updated by other users. Medical History (Updated 10/25/23 @ 20:11 by Dee Miranda APRN) Prostate disease Depression Anxiety History of gastroesophageal reflux (GERD) Migraine Atrial fibrillation Hyperlipidemia Hypertension Surgical History (Updated 10/25/23 @ 19:55 by Dia Quach RN) History of tonsillectomy History of cholecystectomy History of cardiac cath History of cardiac radiofrequency ablation Social History Smoking Status: Current every day smoker tobacco type: cigarettes packs per day: 1 alcohol intake: current alcohol intake frequency: 0-2 drinks per day substance use type: denies use current occupational status: employed Travel in the last 8 weeks: Inside the [place] ROS Obtained: Yes All systems reviewed & no additional complaints except as documented and Yes Systems reviewed as appropriate & no additional complaints except as documented Constitutional Constitutional: Reports system reviewed and no additional complaints, except as documented and Reports as per HPI ENT Ears, Nose, Mouth, and Throat: Reports system reviewed and no additional complaints, except as documented and Reports as per HPI Cardiovascular Cardiovascular: Reports system reviewed and no additional complaints, except as documented and Reports as per HPI Respiratory Respiratory: Reports system reviewed and no additional complaints, except as documented and Reports as per HPI Musculoskeletal Musculoskeletal: Reports system reviewed and no additional complaints, except as documented and Reports as per HPI Integumentary/Breasts Skin/Breast: Reports system reviewed and no additional complaints, except as documented, Reports as per HPI, Reports sores and Reports other (skin lesion on left forearm with drainage) Physical Exam General General appearance: alert and in no apparent distress ENT ENT exam: Present mucous membranes moist Respiratory Respiratory exam: Present normal lung sounds bilaterally; Absent respiratory distress or wheezes Cardiovascular Cardiovascular exam: Present regular rate, normal rhythm and normal heart sounds Expanded Upper Extremity Exam Left: Forearm/Wrist exam: Present erythema and other (lesion noted with minor drainage, culture obtained and sent to lab) Neurological Exam Neurological exam: Present alert, oriented X3 and normal gait Medical Decision Making Deejay Inquiry Pt receiving controlled substance: No Deejay was queried for this patient: No Vital Signs: 10/25/23 19:35 Temperature 98.7 F Temperature Source Oral Pulse Rate [Left Brachial] 79 Respiratory Rate 20 Blood Pressure [Left Arm] 131/79 Blood Pressure Mean [Left Arm] 96 Blood Pressure Source [Left Arm] Automatic Cuff Blood Pressure Position [Left Arm] Sitting 02 Sat by Pulse Oximetry 97 Oxygen Delivery Method Room Air
[2023-10-25 20:22] VITALS: BP 131/79; PULSE 79; RESP 20; TEMP 37.1; O2SAT 97
[2023-10-25] MEDS: CLINDAMYCIN 150MG CAPSULE 300 MG PO (20:25)
== END 2023-10-25 20:24 | disposition home or self-care (01) ==
PROVIDERS: Emergency Provider Nurse Practitioner; PCP Internal Medicine
DX: L03.114 Cellulitis of left upper limb (principal); B95.62 Methicillin resistant Staphylococcus aureus infection as the cause of diseases classified elsewhere
CPT/HCPCS: 87070; 87077; 87186; 87205; 99212; 99214; G0463

== ENCOUNTER 2023-11-09 18:00 | Outpatient (CLI) | payer BC, SELFPAY ==
[2023-11-09 19:48] LABS: Cholesterol 257 mg/dl (140-200); HDL Cholesterol 51 mg/dl (40-60); Triglycerides 110 mg/dl (30-150); VLDL Cholesterol 22 mg/dL (0-40)
[2023-11-09 20:02] LABS: Direct LDL Cholesterol 162.82 mg/dL (100-129)
== END 2023-11-09 23:59 | disposition home or self-care (01) ==
LOC: LAB.DROPOF 11-10 15:10
PROVIDERS: PCP Internal Medicine; Visit Provider Internal Medicine
DX: R53.83 Other fatigue (principal)
CPT/HCPCS: 80061

== ENCOUNTER 2023-11-15 14:21 | Emergency (ER) | payer BC, SELFPAY ==
--- NOTE | 2023-11-15 14:25 | ED_ITS ---
<Statement entered by Kingston Colon MD - 11/15/23 14:54> I was consulted by the KACY, and we discussed the complexity of the problems being addressed. I approved the treatment and management plan for this patient's care in the emergency department, thus performing a substantive portion of the medical decision making. Kingston Colon MD Discharge Plan Disposition Patient Disposition: Home, Self-Care Condition: Good Prescriptions Prescriptions: New pantoprazole [Protonix] 40 mg tablet,delayed release (DR/EC) 40 mg PO DAILY 56 Days Qty: 56 0RF No Action meloxicam 15 mg tablet 15 mg PO DAILY 30 Days Qty: 30 2RF tamsulosin [Flomax] 0.4 mg capsule 0.4 mg PO DAILY Qty: 30 3RF oxybutynin chloride 10 mg tablet extended release 24hr 10 mg PO DAILY Qty: 90 3RF tizanidine 4 mg capsule 4 mg PO TID PRN (Reason: muscle spasticity) Qty: 90 2RF tramadol 50 mg tablet 50 mg PO Q6H PRN (Reason: pain) 30 Days Qty: 180 2RF Rx Instructions: 1-2 tablets q 6 hours PRN pain omega-3 fatty acids 1,000 mg capsule 1,000 mg PO BID 30 Days Qty: 60 2RF fenofibrate 50 mg capsule 54 mg PO DAILY Qty: 90 4RF lisinopril 5 mg tablet 5 mg PO DAILY 30 Days Qty: 30 2RF ondansetron 4 mg Tablet,Disintegrating 4 mg PO Q8H PRN (Reason: Nausea) Qty: 12 0RF mupirocin 2 % ointment 1 applic topical TID 10 Days Qty: 40 0RF Rx Instructions: apply as directed Referrals Follow up/Referrals: Alvaro Mccain MD [Staff Physician] - See instructions Paresh Delcid DO [Primary Care Provider] - See instructions Activity Restrictions/Add. Instructions Additional Instructions/Restrictions: Please avoid eating large bites of food. Please make sure that you chew well all of your food. Avoid gluten containing products including bread biscuits doughnuts etc. I have sent a prescription for Protonix into your pharmacy. Please take first dose today and then every evening thereafter. Please call in the morning and make an appointment with Dr. Mccain's office for endoscopy. Clinical Impressions Clinical Impression: Food impaction of esophagus Qualifiers: Encounter type: initial encounter Qualified Code(s): T18.128A - Food in esophagus causing other injury, initial encounter Instructions Patient Instructions: Steakhouse Syndrome Discharge ED Provider: Kingston Colon General Adult HPI General Chief complaint: Skin/Abscess/Foreign Body Stated complaint: object stuck in throat Time Seen by Provider: 11/15/23 14:25 History of Present Illness HPI narrative: Patient presents for a bolus sensation after eating beef tips for lunch. Patient's never had this experience before but felt a choking sensation although he did not lose his ability to speak or breathe. He has never had this before and has no known history of GERD but is a pack-a-day smoker. Denies cardiac chest pain fever chills hemoptysis hematochezia melena hematemesis hematuria. Related Data Previous Rx's Medication Instructions Recorded meloxicam 15 mg tablet 15 mg PO DAILY 30 days #30 tabs 05/01/23 ondansetron 4 mg disintegrating 4 mg PO Q8H PRN Nausea #12 tabs 07/17/23 tablet oxybutynin chloride 10 mg 10 mg PO DAILY #90 tabs 07/31/23 tablet,extended release 24 hr tamsulosin 0.4 mg capsule (Flomax) 0.4 mg PO DAILY #30 caps 07/31/23 omega-3 fatty acids 1,000 mg 1,000 mg PO BID 30 days #60 caps 08/24/23 capsule fenofibrate 50 mg capsule 54 mg (1.08 x 50 mg) PO DAILY #90 10/03/23 caps mupirocin 2 % topical ointment 1 applic topical TID 10 days #40 10/25/23 grams tizanidine 4 mg capsule 4 mg PO TID PRN muscle spasticity 11/09/23 #90 caps tramadol 50 mg tablet 50 mg PO Q6H PRN pain 30 days #180 11/09/23 tabs lisinopril 5 mg tablet 5 mg PO DAILY 30 days #30 tabs 11/13/23 pantoprazole 40 mg tablet,delayed 40 mg PO DAILY 8 weeks #56 tabs 11/15/23 release (Protonix) Allergies Allergy/AdvReac Type Severity Reaction Status Date / Time CHOLESTEROL MEDS Allergy Unknown Uncoded 11/09/23 09:13 From BIAXIN Allergy Unknown Uncoded 11/09/23 09:13 [facility] Disclaimer: The information contained in this section may have been updated after the patient was seen, as this information can be updated by other users. Medical History Prostate disease Depression Anxiety History of gastroesophageal reflux (GERD) Migraine Atrial fibrillation Hyperlipidemia Hypertension Surgical History History of tonsillectomy History of cholecystectomy History of cardiac cath History of cardiac radiofrequency ablation Social History Smoking Status: Current every day smoker tobacco type: cigarettes packs per day: 1 alcohol intake: current alcohol intake frequency: 0-2 drinks per day substance use type: denies use current occupational status: employed Travel in the last 8 weeks: Inside the [place] ROS Obtained: Yes Systems reviewed as appropriate & no additional complaints except as documented Physical Exam General General appearance: alert and in no apparent distress Head Head exam: atraumatic and normal inspection ENT ENT exam: Present normal exam, normal oropharynx and mucous membranes moist Neck Neck exam: Present normal inspection, full ROM and trachea midline; Absent tenderness Chest Chest inspection: Present normal inspection and symmetric chest wall rise; Absent tenderness Respiratory Respiratory exam: Present normal lung sounds bilaterally; Absent respiratory distress Cardiovascular Cardiovascular exam: Present regular rate and normal rhythm Abdominal Exam Abdominal exam: Present soft, tenderness (In the epigastrium) and normal bowel sounds; Absent guarding or rebound Neurological Exam Neurological exam: Present alert and oriented X3 Medical Decision Making Medical Records Medical records reviewed: Yes I reviewed the patient's medical records. Deejay Inquiry Pt receiving controlled substance: No Lab Data Lab results reviewed: Yes I reviewed the patient's lab results. Medical Decision Narrative: In summary patient is a-year-old male who presents to the emergency department for evaluation of food bolus. Patient is hemodynamically stable upon arrival, afebrile. Physical exam is remarkable for slight epigastric tenderness but patient is breathing well on room air speaking well with no stridor.. Differential diagnosis includes esophageal stricture versus food bolus. Initial workup will be conducted with oral intake with water. Initial interventions were considered however after p.o. challenge patient's sensation passed thus no further workup indicated today. Directed p.o. challenge with head tuck and water ingestion because the food bolus to pass the stricture into the stomach. Given this patient is appropriate for discharge with referral for upper endoscopy Critical Care Critical Care Time Critical Care Time: No
--- NOTE | 2023-11-15 14:33 | PC.NURSE ---
Dr. Colon at BS
[2023-11-15 14:34] VITALS: BP 143/88; PULSE 88; RESP 18; TEMP 37.1; O2SAT 98; BMI 33.2
--- NOTE | 2023-11-15 14:41 | PC.NURSE ---
DON at bedside instructed pt to take sips of water through straw. Pt able to swallow water with no difficulty food bolus moved. Pt has been referred to GI for scope.
[2023-11-15 14:51] VITALS: BP 143/88; PULSE 88; RESP 18; TEMP 36.9; O2SAT 98
== END 2023-11-15 14:52 | disposition home or self-care (01) ==
PROVIDERS: Emergency Provider Emergency Medicine; PCP Internal Medicine
DX: T18.128A Food in esophagus causing other injury, initial encounter (principal); F17.210 Nicotine dependence, cigarettes, uncomplicated; I10 Essential (primary) hypertension; E78.5 Hyperlipidemia, unspecified; K21.9 Gastro-esophageal reflux disease without esophagitis; W44.F3XA Food entering into or through a natural orifice, initial encounter
CPT/HCPCS: 99283

== ENCOUNTER 2024-02-11 19:22 | Emergency (ER) | payer BC, SELFPAY ==
[2024-02-11 19:24] VITALS: BP 164/96; PULSE 77; RESP 18; TEMP 36.9; O2SAT 99; BMI 24.3
--- NOTE | 2024-02-11 19:31 | ED_ITS ---
<Statement entered by Kingston Colon MD - 02/11/24 23:46> I was consulted by the KACY, and we discussed the complexity of the problems being addressed. I approved the treatment and management plan for this patient's care in the emergency department, thus performing a substantive portion of the medical decision making. Patient has nonfocal neurologic exam and spontaneous intermittent vestibular syndrome in the setting of sinusitis and likely prolonged viral syndrome. Patient was ambulatory at bedside and given duration of symptoms I would expect infarct to have persistent symptoms, minimal ability to ambulate and would be obvious on noncontrasted CT scan by now. Patient is appropriate for outpatient management at this time. Kingston Colon MD Discharge Plan Disposition Patient Disposition: Home, Self-Care Condition: Good Prescriptions Prescriptions: New doxycycline hyclate 100 mg capsule 100 mg PO BID 10 Days Qty: 20 0RF prednisone 50 mg tablet 50 mg PO DAILY 5 Days Qty: 5 0RF No Action meloxicam 15 mg tablet 15 mg PO DAILY 30 Days Qty: 30 2RF tamsulosin [Flomax] 0.4 mg capsule 0.4 mg PO DAILY Qty: 30 3RF oxybutynin chloride 10 mg tablet extended release 24hr 10 mg PO DAILY Qty: 90 3RF tizanidine 4 mg capsule 4 mg PO TID PRN (Reason: muscle spasticity) Qty: 90 2RF tramadol 50 mg tablet 50 mg PO Q6H PRN (Reason: pain) 30 Days Qty: 180 2RF Rx Instructions: 1-2 tablets q 6 hours PRN pain fenofibrate 50 mg capsule 54 mg PO DAILY Qty: 90 4RF lisinopril 5 mg tablet 5 mg PO DAILY 30 Days Qty: 30 2RF omega-3 acid ethyl esters 1 gram capsule See Rx Instructions .ROUTE .COMPLEX Qty: 60 1RF Dose Instruction: TAKE 1 CAPSULE BY MOUTH TWICE DAILY Rx Instructions: TAKE 1 CAPSULE BY MOUTH TWICE DAILY ondansetron 4 mg Tablet,Disintegrating 4 mg PO Q8H PRN (Reason: Nausea) Qty: 12 0RF mupirocin 2 % ointment 1 applic topical TID 10 Days Qty: 40 0RF Rx Instructions: apply as directed pantoprazole [Protonix] 40 mg tablet,delayed release (DR/EC) 40 mg PO DAILY 56 Days Qty: 56 0RF Referrals Follow up/Referrals: Paresh Delcid DO [Primary Care Provider] - See instructions Clinical Impressions Clinical Impression: Chronic sinusitis of both maxillary sinuses, Dizziness Instructions Patient Instructions: DI for Sinusitis, Dizziness, Nonvertigo Print Language Print Language: Emirati Discharge ED Provider: Kingston Colon General Adult HPI <LUIS EDUARDO Dai - Last Filed: 02/11/24 22:47> General Chief complaint: Dizziness Stated complaint: chest congestion, fever,cough Time Seen by Provider: 02/11/24 19:31 History of Present Illness HPI narrative: Patient presents for evaluation of dizziness and an facial pressure. Patient gives a 2-week history of facial pressure cough congestion that has now become associated with some intermittent infrequent dizziness. It occurs in any position and does not go away when it occurs. He has no focal neurologic deficits. He reports subjective feeling of hot and cold. He denies chest pain hemoptysis hematochezia melena hematemesis hematuria Related Data Previous Rx's ?Medication ?Instructions ?Recorded meloxicam 15 mg tablet 15 mg PO DAILY 30 days #30 tabs 05/01/23 ondansetron 4 mg disintegrating 4 mg PO Q8H PRN Nausea #12 tabs 07/17/23 tablet oxybutynin chloride 10 mg 10 mg PO DAILY #90 tabs 07/31/23 tablet,extended release 24 hr tamsulosin 0.4 mg capsule (Flomax) 0.4 mg PO DAILY #30 caps 07/31/23 fenofibrate 50 mg capsule 54 mg (1.08 x 50 mg) PO DAILY #90 10/03/23 caps mupirocin 2 % topical ointment 1 applic topical TID 10 days #40 10/25/23 grams tizanidine 4 mg capsule 4 mg PO TID PRN muscle spasticity 11/09/23 #90 caps tramadol 50 mg tablet 50 mg PO Q6H PRN pain 30 days #180 11/09/23 tabs lisinopril 5 mg tablet 5 mg PO DAILY 30 days #30 tabs 11/13/23 pantoprazole 40 mg tablet,delayed 40 mg PO DAILY 8 weeks #56 tabs 11/15/23 release (Protonix) omega-3 acid ethyl esters 1 gram See Rx Instructions .Route 12/11/23 capsule .COMPLEX #60 caps doxycycline hyclate 100 mg capsule 100 mg PO BID 10 days #20 caps 02/11/24 prednisone 50 mg tablet 50 mg PO DAILY 5 days #5 tabs 02/11/24 Allergies Allergy/AdvReac Type Severity Reaction Status Date / Time CHOLESTEROL MEDS Allergy Unknown Uncoded 11/09/23 09:13 From BIAXIN Allergy Unknown Uncoded 11/09/23 09:13 PFSH <LUIS EDUARDO Dai - Last Filed: 02/11/24 22:47> [facility] Disclaimer: The information contained in this section may have been updated after the patient was seen, as this information can be updated by other users. Medical History Prostate disease Depression Anxiety History of gastroesophageal reflux (GERD) Migraine Atrial fibrillation Hyperlipidemia Hypertension Surgical History History of tonsillectomy History of cholecystectomy History of cardiac cath History of cardiac radiofrequency ablation Social History Smoking Status: Current every day smoker tobacco type: cigarettes packs per day: 1 alcohol intake: current alcohol intake frequency: 0-2 drinks per day substance use type: denies use current occupational status: employed Travel in the last 8 weeks: [place] the [place] <LUIS EDUARDO Dai - Last Filed: 02/11/24 22:47> ROS Obtained: Yes Systems reviewed as appropriate & no additional complaints except as documented Physical Exam <LUIS EDUARDO Dai - Last Filed: 02/11/24 22:47> General General appearance: alert and in no apparent distress Neck Neck exam: Present lymphadenopathy Respiratory Respiratory exam: Present normal lung sounds bilaterally Cardiovascular Cardiovascular exam: Present regular rate Neurological Exam Neurological exam: Present alert, oriented X3, CN II-XII intact and normal gait; Absent motor sensory deficit Medical Decision Making <LUIS EDUARDO Dai - Last Filed: 02/11/24 22:47> Medical Records Medical records reviewed: Yes I reviewed the patient's medical records. Deejay Inquiry Pt receiving controlled substance: No Vital Signs: 02/11/24 19:24 02/11/24 20:30 02/11/24 20:45 Temperature 98.4 F Temperature Source Oral Pulse Rate 64 Pulse Rate [Right Radial] 77 Respiratory Rate 18 Blood Pressure 159/85 H 141/75 H Blood Pressure [Right Arm] 164/96 H Blood Pressure Mean [Right Arm] 118 Blood Pressure Source [Right Arm] Automatic Cuff Blood Pressure Position [Right Arm] Supine 02 Sat by Pulse Oximetry 99 82 L 98 Oxygen Delivery Method Room Air 02/11/24 22:28 Temperature 98.2 F Temperature Source Oral Pulse Rate 60 Pulse Rate [Right Radial] Respiratory Rate 16 Blood Pressure 148/74 H Blood Pressure [Right Arm] Blood Pressure Mean [Right Arm] Blood Pressure Source [Right Arm] Blood Pressure Position [Right Arm] 02 Sat by Pulse Oximetry Oxygen Delivery Method Room Air Lab Data Lab results reviewed: Yes I reviewed the patient's lab results. Lab Results 02/11/24 20:14: SARS-CoV-2 (PCR) Not detected, Influenza A Untype (PCR) Not detected, Influenza Type B (PCR) Not detected 02/11/24 20:55: Sodium 141, Potassium 4.1, Chloride 110 H, Carbon Dioxide 27, Anion Gap 8.1, BUN 13, Creatinine 1.00, Estimated Creat Clear 79, Estimated GFR 76, Est GFR ( Amer) 92, Glucose 115 H, Calcium 9.3, Magnesium 2.1, Total Bilirubin 0.5, AST 23, ALT 16, Alkaline Phosphatase 76, Total Protein 7.2, Albumin 4.1, Globulin 3.1, Albumin/Globulin Ratio 1.3 02/11/24 20:55 Orders (Tests/Meds): ED MEDICATIONS Discontinued Medications Generic Name Dose Route Start Last Admin Trade Name Freq PRN Reason Stop Dose Admin Acetaminophen 1,000 mg 02/11/24 19:44 02/11/24 19:57 Acetaminophen 500mg Tab PO 02/11/24 19:45 1,000 mg ONCE ONE Administration Iopamidol 80 ml 02/11/24 21:39 02/11/24 21:40 Iopamidol-370 (76%);100ml Bottle IV 02/11/24 21:40 80 ml ONCE ONE Administration Meclizine HCl 25 mg 02/11/24 19:40 02/11/24 19:57 Meclizine 25mg Tablet PO 02/11/24 19:41 25 mg ONCE ONE Administration Prednisone 60 mg 02/11/24 22:14 02/11/24 22:35 Prednisone 20mg Tab PO 02/11/24 22:15 60 mg ONCE ONE Administration Sodium Chloride 50 ml 02/11/24 21:39 02/11/24 21:40 0.9 % Sodium Chloride 50 Ml Vial IV 02/11/24 21:40 50 ml ONCE ONE Administration Sodium Chloride 10 ml 02/11/24 21:39 02/11/24 21:40 Sodium Chloride 0.9% 10ml Syr (Rad Only) IV 03/12/24 21:38 10 ml NEEDED PRN Administration Maintain IV Site ORDERS Category Date Time Status CT Venogram head Stat Cat Scan 02/11/24 19:[address] head/brain wo con Stat Cat Scan 02/11/24 19:44 Completed Chest XR 2 view (NOT portable) [XR chest 2V] Stat Exams 02/11/24 20:01 Completed CMP [Comprehensive Metabolic Panel] Stat Lab 02/11/24 20:55 Completed MG [Magnesium] Stat Lab 02/11/24 20:55 Completed Rapid PCR Covid and Flu A/B Stat Lab 02/11/24 20:14 Completed EKG Request [ECG Request] Stat Y 02/11/24 20:02 Ordered Medical Decision Narrative: In summary patient is a 64-year-old male who presents to the emergency department for evaluation of dizziness facial pain and upper respiratory tract infection. Patient is hemodynamically stable upon arrival, febrile. Physical exam is remarkable for bilateral maxillary sinus tenderness to palpation and percussion, normal extraocular movements without pain, no nuchal rigidity or cervical spine tenderness, no positional changes in his dizziness, no focal neurologic deficits with a [place] Coma Score 15 and normal gait and station.. Differential diagnosis includes venous cavernous thrombosis versus maxillary sinusitis versus viral upper respiratory tract infection etc. Initial workup will be conducted with hematologic labs COVID band flu swabs, CT scan of the head without CT venogram of the brain. Initial interventions include meclizine and Decadron. Initial workup reviewed by me shows his hematologic labs are nonactionable informatory potation of his imaging shows no evidence of thrombus or acute intracranial problem however it does show maxillary sinusitis bilaterally. Upon repeat evaluation patient did report subjective improvement after initial intervention. Given this patient is appropriate for discharge with a prescription for doxycycline first dose given here, prescription for prednisone with first dose given here. <Kingston Colon MD - Last Filed: 02/11/24 20:34> Vital Signs: 02/11/24 19:24 02/11/24 20:30 02/11/24 20:45 Temperature 98.4 F Temperature Source Oral Pulse Rate 64 Pulse Rate [Right Radial] 77 Respiratory Rate 18 Blood Pressure 159/85 H 141/75 H Blood Pressure [Right Arm] 164/96 H Blood Pressure Mean [Right Arm] 118 Blood Pressure Source [Right Arm] Automatic Cuff Blood Pressure Position [Right Arm] Supine 02 Sat by Pulse Oximetry 99 82 L 98 Oxygen Delivery Method Room Air 02/11/24 22:28 Temperature 98.2 F Temperature Source Oral Pulse Rate 60 Pulse Rate [Right Radial] Respiratory Rate 16 Blood Pressure 148/74 H Blood Pressure [Right Arm] Blood Pressure Mean [Right Arm] Blood Pressure Source [Right Arm] Blood Pressure Position [Right Arm] 02 Sat by Pulse Oximetry Oxygen Delivery Method Room Air Lab Data Lab Results 02/11/24 20:14: SARS-CoV-2 (PCR) Not detected, Influenza A Untype (PCR) Not detected, Influenza Type B (PCR) Not detected 02/11/24 20:55: Sodium 141, Potassium 4.1, Chloride 110 H, Carbon Dioxide 27, Anion Gap 8.1, BUN 13, Creatinine 1.00, Estimated Creat Clear 79, Estimated GFR 76, Est GFR ( Amer) 92, Glucose 115 H, Calcium 9.3, Magnesium 2.1, Total Bilirubin 0.5, AST 23, ALT 16, Alkaline Phosphatase 76, Total Protein 7.2, Albumin 4.1, Globulin 3.1, Albumin/Globulin Ratio 1.3 Orders (Tests/Meds): ED MEDICATIONS Discontinued Medications Generic Name Dose Route Start Last Admin Trade Name Angeline PRN Reason Stop Dose Admin Acetaminophen 1,000 mg 02/11/24 19:44 02/11/24 19:57 Acetaminophen 500mg Tab PO 02/11/24 19:45 1,000 mg ONCE ONE Administration Iopamidol 80 ml 02/11/24 21:39 02/11/24 21:40 Iopamidol-370 (76%);100ml Bottle IV 02/11/24 21:40 80 ml ONCE ONE Administration Meclizine HCl 25 mg 02/11/24 19:40 02/11/24 19:57 Meclizine 25mg Tablet PO 02/11/24 19:41 25 mg ONCE ONE Administration Prednisone 60 mg 02/11/24 22:14 02/11/24 22:35 Prednisone 20mg Tab PO 02/11/24 22:15 60 mg ONCE ONE Administration Sodium Chloride 50 ml 02/11/24 21:39 02/11/24 21:40 0.9 % Sodium Chloride 50 Ml Vial IV 02/11/24 21:40 50 ml ONCE ONE Administration Sodium Chloride 10 ml 02/11/24 21:39 02/11/24 21:40 Sodium Chloride 0.9% 10ml Syr (Rad Only) IV 03/12/24 21:38 10 ml NEEDED PRN Administration Maintain IV Site ORDERS Category Date Time Status CT Venogram head Stat Cat Scan 02/11/24 19:[address] head/brain wo con Stat Cat Scan 02/11/24 19:44 Completed Chest XR 2 view (NOT portable) [XR chest 2V] Stat Exams 02/11/24 20:01 Completed CMP [Comprehensive Metabolic Panel] Stat Lab 02/11/24 20:55 Completed MG [Magnesium] Stat Lab 02/11/24 20:55 Completed Rapid PCR Covid and Flu A/B Stat Lab 02/11/24 20:14 Completed EKG Request [ECG Request] Stat Y 02/11/24 20:02 Ordered ECG Data Tracing #1: Independently interpreted by me rate is 61, rhythm is regular, axis is normal, no ST elevation in anatomical contiguous leads, QTc 387 Critical Care <LUIS EDUARDO Dai - Last Filed: 02/11/24 22:47> Critical Care Time Critical Care Time: No
--- NOTE | 2024-02-11 19:44 | CT_ITS ---
PROCEDURE INFORMATION: Exam: CTA Head With Contrast, Venography Exam date and time: 02/11/2024 9:36 PM Age: 64 years old Clinical indication: Dizziness and giddiness; Additional info: Dizziness, suspect TECHNIQUE: Imaging protocol: Computed tomography angiography of the head with contrast. Exam focused on the veins. 3D rendering (Not supervised by radiologist): MIP and/or 3D reconstructed images were created by the technologist. Radiation optimization: All CT scans at this facility use at least one of these dose optimization techniques: automated exposure control; mA and/or kV adjustment per patient size (includes targeted exams where dose is matched to clinical indication); or iterative reconstruction. Contrast material: ISOVUE; Contrast volume: 80 ml; Contrast route: INTRAVENOUS (IV); COMPARISON: CT HEAD/BRAIN WO CON 02/11/2024 9:34 PM FINDINGS: The superior, inferior, sagittal sinuses, straight sinus, transverse and sigmoid sinuses are normal demonstrating normal enhancement without evidence of filling defect to suggest a thrombus. . Deep cerebral veins including the vein of Devin and internal cerebral veins are unremarkable. . Visualized cortical draining veins into the superior sagittal sinus are symmetric and demonstrate a enhancement. . Near complete opacification of the maxillary sinuses with fluid levels. No mastoid effusion. IMPRESSION: 1. Unremarkable study without evidence of deep venous sinus thrombosis. 2. Acute/subacute bilateral maxillary sinusitis.
--- NOTE | 2024-02-11 19:44 | CT_ITS ---
PROCEDURE INFORMATION: Exam: CT Head Without Contrast Exam date and time: 02/11/2024 9:34 PM Age: 64 years old Clinical indication: Dizziness; Additional info: Dizziness, sinus infection TECHNIQUE: Imaging protocol: Computed tomography of the head without contrast. Radiation optimization: All CT scans at this facility use at least one of these dose optimization techniques: automated exposure control; mA and/or kV adjustment per patient size (includes targeted exams where dose is matched to clinical indication); or iterative reconstruction. COMPARISON: No relevant prior studies available. FINDINGS: Brain: Normal appearing brain parenchyma without intraparenchymal hemorrhage and normal macias-white matter differentiation/no obvious acute ischemic stroke. No intra-or extra-axial fluid collection, no supra-or infratentorial mass, no mass effect or midline shift. Cerebral ventricles: Ventricles, sulci and basal cisterns are normal in size without hydrocephalus. Paranasal sinuses: Near complete opacification of the maxillary sinuses with fluid levels. Mastoid air cells: No mastoid effusion. Bones: Visualized skull bones are grossly normal. Soft tissues: NA IMPRESSION: 1. No evidence of an acute intracranial hemorrhage, mass lesion or obvious acute ischemic infarction. 2. Acute/subacute bilateral maxillary sinusitis.
[2024-02-11] MEDS: MECLIZINE 25MG TABLET 25 MG PO (19:57)
[2024-02-11] MEDS: ACETAMINOPHEN 500MG TAB 1000 MG PO (19:57)
--- NOTE | 2024-02-11 20:01 | XR_ITS ---
PROCEDURE INFORMATION: Exam: XR Chest Exam date and time: 02/11/2024 9:15 PM Age: 64 years old Clinical indication: Cough; Additional info: Cough for 2 weeks TECHNIQUE: Imaging protocol: Radiologic exam of the chest. Views: 2 views. COMPARISON: CR XR CHEST 2V 01/06/2022 9:33 AM FINDINGS: Lungs: Unremarkable lungs. Pleural spaces: No pleural effusion or pneumothorax. Heart/Mediastinum: Cardiomediastinal silhouette is normal. Bones/joints: Chronic degenerative changes in the visualized spine. IMPRESSION: No active lung parenchymal lesion.
--- NOTE | 2024-02-11 20:02 | ECG_ITS ---
APPROVED REPORT Exam: Resting ECG HR:61 bpm ECG Measurements Heart Rate 61 AXES MS 143 P 59 QRSd 83 QRS 67 QT 383 T 72 QTc 387 Conclusion SINUS RHYTHM NORMAL ECG UNCONFIRMED REPORT Electronically signed by : ENEDINA ACEVEDO, 02/12/2024 03:46:59
[2024-02-11 20:16] LABS: Coronavirus 19, PCR Not Detected (NotDetected); Influenza A, PCR Not Detected (NotDetected); Influenza B, PCR Not Detected (NotDetected)
[2024-02-11 20:30] VITALS: BP 159/85; O2SAT 82
[2024-02-11 20:45] VITALS: BP 141/75; PULSE 64; O2SAT 98
[2024-02-11 21:06] LABS: Chloride 110 mmol/L (98-107)
[2024-02-11 21:07] LABS: Albumin Level 4.1 g/dl (3.5-5.0); Potassium 4.1 mmoL/L (3.5-5.1); Sodium 141 mmol/L (136-145)
[2024-02-11 21:09] LABS: Blood Urea Nitrogen 13 mg/dl (9-20); Creatinine Clearance Estimated 79 mL/min (50-200); Estimated Glomerular Filt Rate 76 ml/min (>60); GFR (African American) 92 ML/MIN (>60)
[2024-02-11 21:10] LABS: Alanine Aminotransferase 16 U/L (12-78); Albumin/Globulin Ratio 1.3 (1.1-1.8); Alkaline Phosphatase 76 U/L (38-126); Anion Gap 8.1 mEq/L (5-15); Aspartate Amino Transferase 23 U/L (17-59); Bilirubin,Total 0.5 mg/dl (0.2-1.3); Calcium 9.3 mg/dl (8.4-10.2); Carbon Dioxide 27 mmol/L (22.0-30.0); Globulin 3.1 g/dL (1.3-3.2); Glucose 115 mg/dl (74-100); Magnesium 2.1 mg/dl (1.6-2.3); Total Protein,Serum 7.2 g/dl (6.3-8.2)
--- NOTE | 2024-02-11 21:26 | PC.NURSE ---
pt out of room with Rad for CT
--- NOTE | 2024-02-11 21:38 | PC.NURSE ---
pt back in room from CT
[2024-02-11] MEDS: IOPAMIDOL-370 (76%);100ML BOTTLE 80 ML IV (21:40)
[2024-02-11] MEDS: 0.9 % SODIUM CHLORIDE 50 ML VIAL IV (21:40)
[2024-02-11] MEDS: SODIUM CHLORIDE 0.9% 10ML SYR (RAD ONLY) 10 ML IV (21:40)
[2024-02-11 22:28] VITALS: BP 148/74; PULSE 60; RESP 16; TEMP 36.8; O2SAT 99
[2024-02-11] MEDS: predniSONE 20MG TAB 60 MG PO (22:35)
== END 2024-02-11 22:40 | disposition home or self-care (01) ==
PROVIDERS: Physician Assistant; Emergency Provider Emergency Medicine; PCP Internal Medicine
DX: J32.0 Chronic maxillary sinusitis (principal); R42 Dizziness and giddiness
CPT/HCPCS: 70450; 70496; 71046; 80053; 83735; 87636; 93005; 99285; Q9967

== ENCOUNTER 2025-05-26 17:30 | Outpatient (CLI) | payer BC, SELFPAY ==
[2025-05-26 20:09] LABS: Coronavirus 19, PCR Not Detected (NotDetected); Influenza A, PCR Not Detected (NotDetected)
[2025-05-27 02:34] LABS: Influenza B, PCR Detected (NotDetected)
--- OUTSIDE RECORDS SUMMARY | 2025-05-27 12:16 | XMS_ITS | Referral Summary ---
Author Organization [employer] ([place], [place], [place], [place], [place]) Address [address] [place] [address] Care Team Providers Care Clinical Rn Liaison Name Role Phone [facility], Provider Not In The System MD Primary Care Provider Unavailable Allergies No known active allergies Social History Tobacco Use Types Packs/Day Years Used Date Smoking Tobacco: Never Assessed Food Insecurity Answer Date Recorded Food run out past 12 months Not on file 10/2023 Food did not last past 12 months Not on file 07/04/2023 Employment Answer Date Recorded Help finding and keeping a job Not on file 0 07/04/2023 Family and Community Support Answer Prince e Recorded Help with Day to Day Activities Not on file 07/04/2023 Feeling Lonely or Isolated Not on file 07/04 Educational Attainment Answer Date Chi rded Speak language other than Polish at home Not on file 07/04/2023 Want help with school or training Not on file 07/04/2023 Substance Use Answer Date Recorded Used prescription meds for non-medical reasons N ot on file 07/04/2023 Used illegal drugs past 12 months Not on file 07/04/2023 Sex and Gender Information Value Date Recorded Sex Assigned at Not on file Legal Sex Male 1:08 PM CDT Gender Identity Not on file Sexual Orientation Not on file Plan of Treatment Not on file Insurance BLUE CROSS/BLUE SHIELD Care Teams Clinical Rn Liaison Relationship Specialty Start Date End Date [facility], Provider Not In The System, [place] [address] PCP - General 07/10/23
--- OUTSIDE RECORDS SUMMARY | 2025-05-27 12:16 | XMS_ITS | Clinical Summary ---
Author Organization [facility] Address [address] [place] [address] Care Team Providers Care Jewelry Store Manager Name Role Phone Paresh Delcid Primary Care Provider [phone] Allergies Active Allergy Reactions Criticality Noted Date Comments Clarithromycin Itching,Rash Medium 03/24/2015 Hydromorphone Shortness of breath,Nausea High 10/03/2023 Pt states severe nausea for hours-days. Trouble catching breath after taking Statins Other - please docum ent in the comment field Low 03/24/2015 Medications fenofibrate (Tricor) 54 MG tablet Active lisinopril 5 MG tablet 1 tablet (5 mg). 3 Active meloxicam (Mobic) 15 MG tablet 1 tablet (15 mg) if needed. 3 Active omega-3 acid ethyl esters (Lovaza) 1 g capsule 4 Active tiZANidine (Zanaflex) 4 MG capsule 1 capsule (4 mg). 3 Active traMADol (Ultram) 50 MG tablet 3 Active levoFLOXacin (Levaquin) 500 MG tabletIndicatio ns:Elevated PSA 1 po day prior to procedure, 1 po day of procedure, 1 po day after procedure. 3 tablet 4 Active Additional Information Patient not taking.Reported on 12/17/2024 pantoprazole (Protonix) 40 MG EC tablet 1 tablet (40 mg). 4 Active tamsulosin (Flomax) 0.4 MG 24 hr capsule 5 Active multivitamin (Theragran) tablet Take 1 tablet by mouth daily. Active b complex vitamins capsule Take 1 capsule by mouth daily. Active mirabegron ER (Myrbetriq) 25 MG tabletIndicatio ns:Urinary urgency Take 1 tablet by mouth daily. 30 tablet 11 5 12/18/19 26 Active Family History Medical History Relation Name Comments Heart disease Father Maikel Ford Hypertension Father Maikel Ford Heart disease Maternal Grandfather Tank Rojo Heart disease Mother Macey Uribe Relation Name Status Comments Father Maikel Ford Maternal Grandfather Tank Rojo Mother Macey Uribe Social History Tobacco Use Types Packs/Day Years Used Date Smoking Tobacco: Every Day Cigarettes 1 51 Passive Smoke Exposure: Current Smokeless Tobacco: Never Alcohol Use Standard Drinks/Week Comments Not Currently 0 (1 standard drink = 0.6 oz pur e alcohol) PHQ-2 Answer Date Recorded Patient Health Questionnaire-2 Score 0 12/17/2024 PHQ-9 Answer Date Recorded Patient Health Questionnaire-9 Score 0 12/17/2024 Sex and Gender Information Value Date Recorded Sex Assigned at Male 12/17/2024 12:58 PM EDT Legal Sex Male 8:03 PM EDT Gender Identity Male 12/17/2024 12:56 PM EDT Sexual Orientation Straight 12/17/2024 12 :56 PM EDT Last Filed Vital Signs Vital Sign Reading Time Taken Comments Blood Pressure 117/71 12/17/2024 12:02 PM EDT Pulse 62 12/17/2024 12:02 PM EDT Temperature 36.5 C (97.7 F) 12/17/2024 12:02 PM EDT Respiratory Rate 18 12/17/2024 12:02 PM EDT Oxygen Saturation 98% 12/17/2024 12:02 PM EDT Inhaled Oxygen Concentration - - Weight 71.8 kg (158 lb 4.6 oz) 12/17/2024 12:02 PM EDT Height 172.7 cm (5' 8 ) 12/17/2024 12:02 PM EDT Body Mass Index 24.07 12/17/2024 12:02 PM EDT Plan of Treatment Upcoming Encounters Date Type Department Care Team (Late st Contact Info) Description 12/16/2025 12:00 PM EDT Clinical Support [facility] [address] [place] [address] 12/16/2025 1:00 PM EDT Office Visit [facility] Urology [address] [place] [address] Moe Carlin MD [address] [place] [address] Health Maintenance Due Date Last Done Comments [facility]-HIV Screening 1962 [facility]-Hepatitis C Screening 1962 [facility]-Infant/Child/Adol SDOH Screenings 1962 [facility]- SDOH Screenings 01/13/1980 [facility]-Adult SDOH Screenings 01/13/1980 [facility]-DTaP,Tdap,and Td Vaccine s (1 - Tdap) 1981 [facility]-Pneumococcal Vaccine: 50 + Years (1 of 2 - PCV) 1981 CT Colonography 2007 Colonoscopy 2007 FIT-DNA 2007 FIT 2007 FOBT 2007 Sigmoidoscopy 2007 [facility]-Colorectal Cancer Screening 2007 Lung Cancer Screening Shared Decision Making 01/13/2012 [facility]-Lung Cancer Screening 01/13/2012 [facility]-Zoster Vaccines (1 of 2) 01/13/2012 [id number] Vaccine (3 - season) 2025 06/01/2021, 05/03/2021 [facility]-Influenza Vaccine (#1) 2025 [facility]-Depression Screening 12/17/2025 025, 12/17/2024 [facility]-RSV Vaccine: 60+ Years o r (1 - 1-dose 75+ series) 2037 HPV Vaccines (No Doses Required) Completed [facility]-HIB Vaccines Aged Out No longer e ligible based on patient's age to complete this topic [facility]-Hepatitis A Vaccines Aged Out No longer eligible based on patient's age to complete this topic [facility]-IPV Vaccines Aged Out No longer e ligible based on patient's age to complete this topic [facility]-Rotavirus Vaccines Aged Out No lo nger eligible based on patient's age to complete this [place] [address] CHASE Care Teams Jewelry Store Manager Relationship Specialty Start Date End Date Paresh Delcid DO [address] [place] [id number] PCP - General 08/04/23
--- OUTSIDE RECORDS SUMMARY | 2025-05-27 12:16 | XMS_ITS | Clinical Summary ---
Author Organization [employer] ([place], [place], [place], [place], [place]) Address [address] [place] [address] Care Team Providers Care Press Department Manager Name Role Phone [facility], Provider Not In The System MD [...] Date Chi rded Speak language other than Canadian at home Not on file 07/04/2023 Want [...] Orientation Not on file Plan of Treatment Health Maintenance Due Date Last Done Comments CT Colonography 1962 Colonoscopy 1962 Colorectal Cancer Screening 1962 FOBT/FIT 1962 Fit-DNA (Cologuard) 1962 Sigmoidoscopy 1962 Depression Screening (12+) 1974 Tobacco Cessation Counseling and Screening (12+) 1974 HIV Screening 1977 Hepatitis C Screening 01/13/1980 DTAP/TDAP/TD VACCINES (1 - Tdap) 1981 Lipid Panel 1997 Pneumococcal 50+ years (1 of 1 - PCV) 01/13/2012 Shingles Vaccine (Zoster) (1 of 2) 01/13/2012 COVID-19 VACCINE (3 - season) 01/27/202508/2021, 05/03/2021 Influenza Vaccine (#1) 2025 Respiratory Syncytial Virus (RSV) Adult or (1 - 1-dose 75+ series) 2037 Insurance BLUE CROSS/BLUE SHIELD Care Teams Press Department Manager Relationship Specialty Start Date End Date [facility], Provider Not In The System, [place] [address] PCP - General 07/10/23
--- OUTSIDE RECORDS SUMMARY | 2025-05-27 12:16 | XMS_ITS | Encounter Summary ---
Author Organization [facility] Address [address] [place] [address] Care Team Providers Care Import Export Clerk Name Role Phone LachoParesh gotti Primary Care Provider [phone] Encounter Details Date Type Department Care Team (Late st Contact Info) Description 07/12/2023 Orders Only External Location [address] [place] [address] Paresh Canada MD [address] [id number] Social History Tobacco Use Types Packs/Day Years Used Date Smoking Tobacco: Never Assessed Sex and Gender Information Value Date Recorded Sex Assigned at Male 12/17/2024 12:58 PM EDT Legal Sex Male 8:03 PM EDT Gender Identity Male 12/17/2024 12:56 PM EDT Sexual Orientation Straight 12/17/2024 12 :56 PM EDT documented as of this encounter Plan of Treatment Upcoming Encounters Date Type Department Care Team (Late st Contact Info) Description 12/16/2025 12:00 PM EDT Clinical Support [facility] [address], [address] [place] [phone] 12/16/2025 1:00 PM EDT Office Visit [facility] [address] [place] [address] Moe Carlin MD [address] [place] [address] documented as of this encounter Procedures Procedure Name Priority Date/Time Associated Diagnosis Comments MR OUTSIDE IMAGES 07/12/2023 8:39 AM EST documented in this encounter Results * MR transfer of outside films (07/12/2023 8:39 AM EST) Anatomical Region Laterality Modality Magnetic Resonan ce 07/12/2023 8:39 AM EST us Paresh Canada MD IMG MRI PROCEDURES Final Result documented in this encounter Visit Diagnoses Not on filedocumented in this encounter Care Teams Import Export Clerk Relationship Specialty Start Date End Date Paresh Delcid DO [address] [place] [id number] PCP - General 08/04/23 documented as of this encounter
--- OUTSIDE RECORDS SUMMARY | 2025-05-27 12:16 | XMS_ITS | Clinical Summary ---
Author Organization [facility] Address [address] [place] [address] Care Team Providers Care Table Games Dual Rate Supervisor Name Role Phone Meo Biswas MD Primary Care Provider + Allergies Active Allergy Reactions Criticality Noted Date Comments Clarithromycin 03/24/2015 Statins 03/24/2015 Medications Loratadine-Pseud oephedrine (CLARITIN-D 24 HOUR PO) Take by mouth daily as needed. Active Active Problems Problem Noted Date Diagnosed Date Atrial arrhythmia 03/24/2015 Overview (01/13/2016): a. Multiple recurrent episodes of tachypalpitations with failure of medical therapy. b. EP study and RFA of pulmonary veins 06/29/2012. c. CHADS score =1. DIAGNOSTIC DATA: 48-hour Holter test, 03/06/2015: Baseline mechanism is sinus. Minimum heart rate 60, average 87, maximum 128. Greater than 12,000 PACs with the longest run of 3 beats. 33 PVCs with no couplets or runs. 03/03/2015 SVT (supraventricular tachycardia) 03/24/2015 Overview (01/13/2016): 1. 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 Dyslipidemia 03/24/2015 Hypertension 03/24/2015 Peptic ulcer disease 03/24/2015 Nicotine addiction 03/24/2015 Overview (01/13/2016): Ongoing. Nephrolithiasis Overview (01/13/2016): Remote. Family History Medical History Relation Name Comments Heart failure Father Heart failure Mother Relation Name Status Comments Father Mother Social History Tobacco Use Types Packs/Day Years Used Date Smoking Tobacco: Every Day Cigarettes Comments:Ongoing nicotine ad diction. Alcohol Use Standard Drinks/Week Comments No 0 (1 standard drink = 0.6 oz pur e alcohol) Abuse Screen Answer Date Recorded Unsafe at Home or Work/School Not on file Feels Threatened by Someone? Not on file 01/2023 Does Anyone Keep You from Co ntacting Others or Doint Things Outside the Home? Not on file 03/06/2023 Physical Sign of Abuse Present Not on file 1 Housing Stability Answer Date Recorded Current Living Arrangements Not on file 01/2023 Potentially Unsafe Housing Conditions Not on clari e 03/06/2023 Family and Community Support Answer Prince e Recorded Help with Day-to-Day Activities Not on file 03/06/2023 Lonely or Isolated Not on file 03/06/2023 Employment Answer Date Recorded Do you want help finding or keeping work or a jesus b? Not on file 03/06/2023 Disabilities Answer Date Recorded Concentrating, Remembering, or Making Decisions Difficulty Not on file 03/06/2023 Doing Errands Independently Difficulty Not on fi le 03/06/2023 Education Answer Date Recorded Help with school or training? Not on file Preferred Language Not on file 03/06/2023 Sex and Gender Information Value Date Recorded Sex Assigned at Not on file Legal Sex Male 10:00 AM EDT Gender Identity Not on file Sexual Orientation Not on file Last Filed Vital Signs Vital Sign Reading Time Taken Comments Blood Pressure 120/78 01/19/2016 3:36 PM EDT Pulse 80 01/19/2016 3:36 PM EDT Temperature - - Respiratory Rate - - Oxygen Saturation - - Inhaled Oxygen Concentration - - Weight 78.5 kg (173 lb) 01/19/2016 3:36 PM EDT Height 172.7 cm (5' 8 ) 01/19/2016 3:36 PM EDT Body Mass Index 26.3 01/19/2016 3:36 PM EDT Plan of Treatment Health Maintenance Due Date Last Done Comments ANNUAL PHYSICAL 1960 HEPATITIS C SCREENING 1962 TDAP/TD VACCINES (1 - Tdap) 1981 COLOGUARD 2007 COLON CANCER SCREENING 5 YEAR SIGMOIDOSCOPY 2007 COLONOSCOPY [address]ER SCREENING [address] CT COLONOGRAPHY 2007 FECAL OCCULT BLOOD TEST 2007 FIT Testing (1 year) 2007 Pneumococcal Vaccine 50+ (1 of 1 - PCV) 01/13/2012 ZOSTER VACCINE (1 of 2) 01/13/2012 INFLUENZA VACCINE 12/27/2024 Insurance [employer] Care Teams Table Games Dual Rate Supervisor Relationship Specialty Start Date End Date Moe Biswas MD PCP - General 03/06/15
== END 2025-05-26 23:59 | disposition home or self-care (01) ==
LOC: LAB.DROPOF 05-27 12:13
PROVIDERS: PCP Internal Medicine; Visit Provider Nurse Practitioner
DX: J06.9 Acute upper respiratory infection, unspecified (principal)
CPT/HCPCS: 87631